=== PATIENT | male | born 1960 | race Caucasian/White ===

== ENCOUNTER → 2017-05-31 12:00 | Outpatient (CLI) | payer BC, SELFPAY ==
[2017-05-31 14:15] LABS: Hematocrit 41.4 % (40-54); Hemoglobin 14.4 g/dl (13.0-16.5); Mean Corp Hgb Conc 34.8 g/gl (32-36); Mean Corpuscular Hgb 29.9 pg (27.0-32.0); Mean Corpuscular Volume 85.9 fL (80-94); Mean Platelet Vol. 10.9 fl (6.2-12.0); Platelet Count 211 K/mm3 (150-450); Red Blood Count 4.82 M/mm3 (4.6-6.2)
[2017-05-31 14:19] LABS: Scan Indicated on CBC? Y/N NO
[2017-05-31 14:32] LABS: Microalbumin,Random Urine < 5.0 mg/L (NO RANGE EST.)
[2017-05-31 14:46] LABS: AST(SGOT) 37 U/L (15-37); Alanine Aminotransfer ALT/SGPT 57 U/L (16-61); Albumin, Serum 3.8 g/dL (3.2-5.0); Alkaline Phosphatase 72 U/L (45-117); Anion Gap 9 (5-15); BUN 12 mg/dL (7-18); BUN/Creat Ratio 15.6 RATIO (10-20); Calcium,Total 8.9 mg/dL (8.5-10.1); Chloride 106 mmol/L (98-107); Cholesterol 137 mg/dL (200); Creatinine, Serum 0.77 mg/dL (0.70-1.30); EST Glomerular Filtration Rate 110 mL/min (>60); Est Glom Filt Rate - Afr Amer 134 mL/min (>60); Globulin 3.7 g/dL (2.2-4.2); Glucose 142 mg/dL (74-106); High Density Lipoprotein 38 mg/dL; Potassium 4.1 mmol/L (3.5-5.1); Protein, Total 7.5 g/dL (6.4-8.2); Sodium Level 139 mmol/L (136-145); Thyroid Stim Hormone (TSH) 2.55 uIU/mL (0.358-3.74); Triglycerides 180 mg/dL; Very Low Density Lipoprotein 36 mg/dL (5-40)
== END ==
PROVIDERS: Family Provider Family Medicine; PCP Family Medicine; Visit Provider Family Medicine
DX: E11.9 Type 2 diabetes mellitus without complications (principal); K22.70 Barrett's esophagus without dysplasia
CPT/HCPCS: 36415; 80053; 80061; 82043; 82570; 84443; 85027

== ENCOUNTER 2017-07-28 19:16 | Emergency (ER) | payer BC, SELFPAY ==
[2017-07-28 19:16] VITALS: BP 128/77; PULSE 75; RESP 15; TEMP 37.1; BMI 35.9
--- NOTE | 2017-07-28 19:33 | ED.VISSUMM ---
- ER Visit Summary Date of Service: 07/28/17 Chief Complaint: Cough History of Present Illness: The patient is a 56 M with a history of diabetes, acid reflux, and allergic rhinitis. He ate some ice cream yesterday. Today he is having a lot of acid reflux. He says it irritates his throat and causes him to cough frequently. He also has seasonal allergies and reports postnasal drip. Denies shortness of breath or chest pain. Denies sputum. He is taking his diabetes medication and acid reflux medication. He is not taking anything currently for allergies. Physical Examination: Afebrile and vital signs unremarkable. Alert and oriented. Cranial nerves grossly intact. Posterior oral pharyngeal erythema. Good range of motion of his neck. No lymphadenopathy. Heart regular. Lungs clear. Skin appears normal. Test Results: None indicated Emergency Department Course and Treatment: Patient likely has acid reflux coupled with postnasal drip. There is no indication for imaging or other diagnostic testing. He will continue taking his home acid reflux medication. He was given a GI cocktail here. Will also start him on a nasal steroid. He was advised to follow-up with his doctor for recheck. Return for any new or worsening issues. Treatment Plan: As above Disposition: Discharged Impression: 1. Pharyngitis This note was generated with [employer] dictation software. It may contain incorrect words, spelling, and punctuation that were not noted in review of the chart prior to signing ED Disposition - Plan for ED Patient: Chief Complaint: Cough Referrals: Matt Salazar MD [Primary Care Provider] -
--- NOTE | 2017-07-28 19:35 | ED.DEP ---
ED Disposition - Plan for ED Patient: Chief Complaint: Cough Instructions: ED GERD, ED Allergy Seasonal Prescriptions: Fluticasone 0.05% [Flonase Nasal [place]] 2 spray NASAL DAILY #1 nasal.sry Referrals: Matt Salazar MD [Primary Care Provider] -
== END 2017-07-28 19:47 | disposition home or self-care (01) ==
LOC: ED 19:38
PROVIDERS: Emergency Provider Emergency Medicine; Family Provider Family Medicine; PCP Family Medicine
DX: J02.9 Acute pharyngitis, unspecified (principal); E11.9 Type 2 diabetes mellitus without complications; J30.9 Allergic rhinitis, unspecified; K21.9 Gastro-esophageal reflux disease without esophagitis; Z79.899 Other long term (current) drug therapy; Z87.891 Personal history of nicotine dependence
CPT/HCPCS: 99283

== ENCOUNTER 2017-08-18 20:25 | Emergency (ER) | payer BC, SELFPAY ==
[2017-08-18 20:25] VITALS: BP 149/73; PULSE 74; RESP 15; TEMP 37.5; BMI 34.9
--- NOTE | 2017-08-18 20:52 | ED.VISSUMM ---
- ER Visit Summary Date of Service: 08/18/17 Chief Complaint: Nausea History of Present Illness: The patient is a 56 M history of noncemented diabetes and reflux. States his primary care physician Dr. Matt Salazar recently put him on prednisone and doxycycline for a cough. Patient states that time he has whitish phlegm. Denies any shortness of breath. No hemoptysis. No chest pain. He believes that the doxycycline is making his reflux worse and make him nauseated. He denies any vomiting he denies any melena. He denies any fever. He is a non-smoker. Physical Examination: Very well-appearing middle-age male. Vital signs are stable and afebrile. He is in no distress. He does not look septic or toxic. H EENT exam unremarkable moist wheeze membranes. Posterior pharynx without erythema or exudate. TMs unremarkable small amount of wax in his left ear. Neck nontender no lymphadenopathy. Trachea midline. Lungs clear to auscultation bilaterally. No rales no rhonchi no wheezing. Equal symmetrical. No distress. Heart regular rate and rhythm no murmur rate about 70. Abdomen soft nontender. He is moving all 4 extremities. They are neurovascularly intact. Calves nontender without edema nor cords. Back exam nontender lungs clear from the posterior aspect. Neurologically is awake and alert. Test Results: None Emergency Department Course and Treatment: Clinically this is a viral syndrome. It has appears to doxycycline as aggravated his reflux. I think the patient can stop the antibiotic at this time. Clinically I do not feel he needs an x-ray. He is fine with the plan. He will use the prednisone as needed for wheezing currently he is not wheezing. Treatment Plan: Stop doxycycline. Treated as a viral syndrome. Disposition: Discharge Impression: Viral URI Acute on chronic reflux secondary to worsening symptoms secondary to doxycycline. This note was generated with [employer] dictation software. It may contain incorrect words, spelling, and punctuation that were not noted in review of the chart prior to signing ED Disposition - Plan for ED Patient: Chief Complaint: Nausea/Vomiting Referrals: Matt Salazar MD [Primary Care Provider] -
--- NOTE | 2017-08-18 20:55 | ED.DCSUM_ITS ---
- ER Visit Summary Date of Service: 08/18/17 Chief Complaint: Nausea History of Present Illness: The patient is a 56 M history of noncemented diabetes and reflux. States his primary care physician Dr. Matt Salazar recently put him on prednisone and doxycycline for a cough. Patient states that time he has whitish phlegm. Denies any shortness of breath. No hemoptysis. No chest pain. He believes that the doxycycline is making his reflux worse and make him nauseated. He denies any vomiting he denies any melena. He denies any fever. He is a non-smoker. Physical Examination: Very well-appearing middle-age male. Vital signs are stable and afebrile. He is in no distress. He does not look septic or toxic. H EENT exam unremarkable moist wheeze membranes. Posterior pharynx without erythema or exudate. TMs unremarkable small amount of wax in his left ear. Neck nontender no lymphadenopathy. Trachea midline. Lungs clear to auscultation bilaterally. No rales no rhonchi no wheezing. Equal symmetrical. No distress. Heart regular rate and rhythm no murmur rate about 70. Abdomen soft nontender. He is moving all 4 extremities. They are neurovascularly intact. Calves nontender without edema nor cords. Back exam nontender lungs clear from the posterior aspect. Neurologically is awake and alert. Test Results: None Emergency Department Course and Treatment: Clinically this is a viral syndrome. It has appears to doxycycline as aggravated his reflux. I think the patient can stop the antibiotic at this time. Clinically I do not feel he needs an x- ray. He is fine with the plan. He will use the prednisone as needed for wheezing currently he is not wheezing. Treatment Plan: Stop doxycycline. Treated as a viral syndrome. Disposition: Discharge Impression: Viral URI Acute on chronic reflux secondary to worsening symptoms secondary to doxycycline. This note was generated with [employer] dictation software. It may contain incorrect words, spelling, and punctuation that were not noted in review of the chart prior to signing ED Disposition - Plan for ED Patient: Chief Complaint: Nausea/Vomiting Referrals: Matt Salazar MD [Primary Care Provider] -
--- NOTE | 2017-08-18 20:55 | ED.DEP ---
ED Disposition - Plan for ED Patient: Disposition: Home or Assisted Living Chief Complaint: Nausea/Vomiting Instructions: ED Nausea Vomiting, ED URI Viral Referrals: Matt Salazar MD [Primary Care Provider] - As Needed Additional Instructions: Stop the antibiotic doxycycline. More than likely it is making her reflux worse and causing the nausea. This appears to be a viral respiratory infection you should not need antibiotic. Used prednisone only as needed if wheezing. Otherwise it may aggravate her reflux also. Call follow-up your doctor as needed.
[2017-08-18 21:03] VITALS: PULSE 77; O2SAT 95
== END 2017-08-18 21:04 | disposition home or self-care (01) ==
PROVIDERS: Emergency Provider Emergency Medicine; Family Provider Family Medicine; PCP Family Medicine
DX: J06.9 Acute upper respiratory infection, unspecified (principal); K21.9 Gastro-esophageal reflux disease without esophagitis; T36.4X5A Adverse effect of tetracyclines, initial encounter; Y92.9 Unspecified place or not applicable; E11.9 Type 2 diabetes mellitus without complications; R11.0 Nausea; Z79.84 Long term (current) use of oral hypoglycemic drugs; Z79.899 Other long term (current) drug therapy
CPT/HCPCS: 99282

== ENCOUNTER 2017-10-01 17:22 | Emergency (ER) | payer BC, SELFPAY ==
[2017-10-01 17:23] VITALS: BP 116/78; PULSE 79; RESP 16; TEMP 36.9; O2SAT 98; BMI 35.2
--- NOTE | 2017-10-01 19:16 | ED.DCSUM_ITS ---
- ER Visit Summary Date of Service: 10/01/17 Chief Complaint: Laceration History of Present Illness: The patient is a [address] Matt Salazar. He reports that he has a laceration to his right ring finger from a glass. He denies any pain. No paresthesias. No foreign body. His tetanus is up-to-date. Physical Examination: Vitals: Stable. Afebrile. General: Well-nourished and well-developed. Head: Normocephalic atraumatic. Neck: Supple, no lymphadenopathy. No JVD. Nontender. Cardiovascular: Regular rate and rhythm. No murmurs. Respiratory: No respiratory distress. Clear to auscultation bilaterally. Abdominal: Soft, nontender, nondistended, normal bowel sounds. No guarding, rebound, or peritoneal signs. Back: Nontender. Extremities: 0.5 cm laceration to the distal phalanx of his right ring finger. This is superficial and has no active bleeding.. Skin: Normal color, no rash. Neurologic: Alert and oriented ?3. Cranial nerves II through XII are intact. Normal strength and sensation. Psych: Normal affect. Emergency Department Course and Treatment: I discussed with the patient treatment options. He has decided to let this heal by secondary intention. I feel that is a reasonable course of action. Treatment Plan: Patient will be discharged instructions to follow-up Dr. Matt Salazar in 10-14 days if not improving. Disposition: To home in improved and stable condition. Impression: 1. Right fourth finger laceration, 0.5 cm, not repaired. This note was generated with [employer] dictation software. It may contain incorrect words, spelling, and punctuation that were not noted in review of the chart prior to signing ED Disposition - Plan for ED Patient: Disposition: Home or Assisted Living Chief Complaint: Laceration Instructions: ED Laceration Small Superf No Sutr Referrals: Matt Salazar MD [Primary Care Provider] - 10-14 Days if not better
[2017-10-01 19:31] VITALS: PULSE 72; RESP 22; O2SAT 97
--- NOTE | 2017-10-01 19:31 | ED.RN ---
THIS NURSE REVIEWED D/C INSTRUCTIONS WITH PT. PT VERBALIZED UNDERSTANDING OF INSTRUCTIONS. PT DENIES FURTHER NEEDS OR QUESTIONS AT THIS TIME. PT AMBULATES FROM ROOM ON OWN WITHOUT ASSISTANCE FROM STAFF
== END 2017-10-01 19:32 | disposition home or self-care (01) ==
PROVIDERS: Emergency Provider Emergency Medicine; Family Provider Family Medicine; PCP Family Medicine
DX: S61.214A Laceration without foreign body of right ring finger without damage to nail, initial encounter (principal); W25.XXXA Contact with sharp glass, initial encounter; Y93.9 Activity, unspecified; Y92.9 Unspecified place or not applicable; E11.9 Type 2 diabetes mellitus without complications; I10 Essential (primary) hypertension; E78.00 Pure hypercholesterolemia, unspecified; Z79.84 Long term (current) use of oral hypoglycemic drugs; Z79.899 Other long term (current) drug therapy
CPT/HCPCS: 99282

== ENCOUNTER → 2018-03-29 12:43 | Outpatient (CLI) | payer BC, SELFPAY ==
[2018-03-29 13:53] LABS: Absolute Lymphocyte Count 2.79 X10^3/ul (0.83-4.51); Absolute Neutrophil Count 4.3 X10^3/uL (2.0-7.7); Basophil# 0.03 X10^3/uL; Basophil% 0.4 % (0-1); Eosinophil# 0.24 X10^3/uL; Eosinophils% 3.1 % (0-5); Hematocrit 44.8 % (40-54); Hemoglobin 15.4 g/dl (13.0-16.5); Lymphocyte # 2.79 X10^3/ul (4.0); Lymphocyte % 35.6 % (19-41); Mean Corp Hgb Conc 34.4 g/gl (32-36); Mean Corpuscular Hgb 30.2 pg (27.0-32.0); Mean Corpuscular Volume 87.8 fL (80-94); Mean Platelet Vol. 11.1 fl (6.2-12.0); Monocyte# 0.49 X10^3/uL; Monocyte% 6.3 % (0-10); Neutrophil # 4.26 X10^3/uL (2.7-7.7); Neutrophil % 54.2 % (47-70); Platelet Count 192 K/mm3 (150-450); RBC Distribution Width CV 13.1 % (11.6-14.6); RBC Distribution Width SD 41.9 fl (35.1-43.9); White Blood Count 7.8 K/mm3 (4.4-11.0)
[2018-03-29 13:54] LABS: POSITIVE COUNT NO; POSITIVE DIFFERENTIAL NO; POSITIVE MORPHOLOGY NO
[2018-03-29 14:11] LABS: Hemoglobin A1c 7.1 % (4.2-6.3)
[2018-03-29 14:15] LABS: Microalbumin,Random Urine 5.4 mg/L (NO RANGE EST.); Microalbumin:Creatinine Ratio 6.1 mg/g CRE (<30 mg/g CRE)
[2018-03-29 14:25] LABS: ALB/GLOB Ratio 0.9 RATIO (0.9-2.4); AST(SGOT) 29 U/L (15-37); Alanine Aminotransfer ALT/SGPT 49 U/L (16-61); Albumin, Serum 3.9 g/dL (3.2-5.0); Alkaline Phosphatase 64 U/L (45-117); Anion Gap 8 (5-15); BUN 14 mg/dL (7-18); BUN/Creat Ratio 19.3 RATIO (10-20); Chloride 104 mmol/L (98-107); Cholesterol 149 mg/dL (200); Creatinine, Serum 0.73 mg/dL (0.70-1.30); EST Glomerular Filtration Rate 118 mL/min (>60); Est Glom Filt Rate - Afr Amer 142 mL/min (>60); Globulin 4.3 g/dL (2.2-4.2); Glucose 137 mg/dL (74-106); High Density Lipoprotein 37 mg/dL; Potassium 4.2 mmol/L (3.5-5.1); Protein, Total 8.2 g/dL (6.4-8.2); Sodium Level 136 mmol/L (136-145); Thyroid Stim Hormone (TSH) 3.17 uIU/mL (0.358-3.74); Triglycerides 233 mg/dL; Very Low Density Lipoprotein 47 mg/dL (5-40)
== END ==
PROVIDERS: Family Provider Family Medicine; PCP Family Medicine; Referring Provider Family Medicine; Visit Provider Family Medicine
DX: E11.9 Type 2 diabetes mellitus without complications (principal); K22.70 Barrett's esophagus without dysplasia
CPT/HCPCS: 36415; 80053; 80061; 82043; 82570; 83036; 84443; 85025

== ENCOUNTER → 2018-04-29 14:45 | Outpatient (CLI) | payer BC, SELFPAY ==
--- NOTE | 2018-04-29 | IMM_PTH ---
PATIENT: TIA GRIFFIN LOC: [facility] U#:[id number] AGE/SX: 64/M ROOM: RE04/29/[address]: Dr. Isauro Harrington MD : 1960 BED: DIS: SPEC #: [id number] RECD: 05/01/18 13:59 STATUS: MARCI REKera #: [id number] BALJEET: 04/29/18 00:[address]: Isauro Harrington DEPT: IMMUNOHISTOCHEMISTRY RECD BY: Erna Nieves ENTERED: 05/01/18 14:00 SP TYPE: IMMUNO OTHR DR: Dr. Matt Salazar MD Tissues: A - Esophageal mucous membrane Procedures: P53 (initial) PHYSICIAN & INSTITUTION [place] [id number] SPECIMEN INFORMATION: Tissue Source: A - Esophageal biopsy Clinical Info: GERD, Adorno's esophagus Specimen Number: [id number] CPT code: 40738 METHODOLOGY: Deparaffinized sections of prefer/formalin-fixed tissue or PAP/DQ stained slides are incubated with monoclonal/polyclonal antibodies/oligonucleotide probes. Localization is made via biotin free immunoperoxidase method. Appropriate controls are performed and reacted as expected. Results on target cell population are indicated in the following table: RESULTS: ANTIBODY / CLONE RESULT Block A P53 (DO-7) negative These tests were developed and their performance characteristics determined by [facility]. They may not have been cleared or approved by the U.S. Food and Drug Administration. The FDA has determined that such clearance or approval is not necessary. INTERPRETATION: A. Esophageal biopsy: No evidence of dysplasia. AM:katelyn 05/02/18
--- NOTE | 2018-04-29 11:00 | EGD_PTH ---
PATIENT: TIA GRIFFIN LOC: [facility] U#:[id number] AGE/SX: 64/M ROOM: RE04/29/[address]: Dr. Isauro Harrington MD : 1960 BED: DIS: SPEC #: [id number] RECD: 04/29/18 14:39 STATUS: MARCI LAURA #: [id number] BALJEET: 04/29/18 11:[address]: Isauro Harrington DEPT: SURGICAL PATHOLOGY RECD BY: Contreras Riggs ENTERED: 04/30/18 11:14 SP TYPE: EGD BIOPSY VICTOR MANUEL DR: Dr. Matt Salazar MD Tissues: A - Esophageal mucous membrane B - Esophagus, NOS Procedures: Special Stain Group II Surgery Specimen Level IV Alcian Blue/PAS (control) HEADER OPERATION: EGD with biopsies PRE-OP DIAGNOSIS: GERD/Adorno's esophagus TISSUE SUBMITTED: A. Esophageal biopsies/Adorno's mucosa, rule out dysplasia, B. Proximal esophagus, rule out EE MICROSCOPIC DIAGNOSIS A. Esophagus, biopsy: Intestinal metaplasia with no evidence of dysplasia. Mild chronic inflammation. See comment. B. Proximal esophagus, biopsy: Gastroesophageal junctional mucosa with chronic inflammation. No evidence of Adorno's specialized epithelium. See comment. AM:katelyn 05/01/18 COMMENT A. Alcian blue/PAS stain with matched control supports the above diagnosis. Immunohistochemistry ([id number]) supports the above diagnosis. Squamous mucosa is not represented in the biopsy. Clinical correlation is suggested. B. Alcian blue/PAS stain with matched control supports the above diagnosis. MICROSCOPIC DESCRIPTION Slides are reviewed. GROSS DESCRIPTION A - Received in fixative is one container labeled with the patient's name and designated esophageal biopsy. The specimen consists of multiple irregular fragments of light jacinto soft tissue that in aggregate measure 0.8 x 0.3 x 0.1 cm. The specimen is totally submitted in one cassette. B - Received in fixative is one container labeled with the patient's name and designated proximal esophagus. The specimen consists of multiple irregular fragments of light jacinto soft tissue that in aggregate measure 1 x 0.3 x 0.1 cm. The specimen is totally submitted in one cassette. / TUCKER:katelyn 04/30/18 TC:5 CPT: 89910 x2, 29827 x2
== END ==
PROVIDERS: Family Provider Family Medicine; PCP Family Medicine; Referring Provider Internal Medicine Gastroenterology; Visit Provider Internal Medicine Gastroenterology
DX: K22.70 Barrett's esophagus without dysplasia (principal); K21.9 Gastro-esophageal reflux disease without esophagitis
CPT/HCPCS: 88305; 88313; 88342

== ENCOUNTER → 2018-05-03 15:10 | Outpatient (CLI) | payer BC, SELFPAY ==
[2018-05-13 05:06] LABS: Almond <0.10 kU/L (Class 0); Barley, Whole Grain <0.10 kU/L (Class 0); Beef <0.10 kU/L (Class 0); Carrot <0.10 kU/L (Class 0); Casein <0.10 kU/L (Class 0); Cashew <0.10 kU/L (Class 0); Chicken <0.10 kU/L (Class 0); Chocolate <0.10 kU/L (Class 0); Clam <0.10 kU/L (Class 0); Codfish <0.10 kU/L (Class 0); Corn <0.10 kU/L (Class 0); Crab <0.10 kU/L (Class 0); Egg, White <0.10 kU/L (Class 0); Egg, Whole <0.10 kU/L (Class 0); Egg, Yolk <0.10 kU/L (Class 0); Garlic <0.10 kU/L (Class 0); Gluten <0.10 kU/L (Class 0); Hazelnut/Filbert <0.10 kU/L (Class 0); Lobster <0.10 kU/L (Class 0); Milk (Cow) <0.10 kU/L (Class 0); Oat <0.10 kU/L (Class 0); Onion <0.10 kU/L (Class 0); Orange <0.10 kU/L (Class 0); Pea <0.10 kU/L (Class 0); Pecan <0.10 kU/L (Class 0); Pork <0.10 kU/L (Class 0); Potato, White <0.10 kU/L (Class 0); Rice <0.10 kU/L (Class 0); Rye <0.10 kU/L (Class 0); Salmon <0.10 kU/L (Class 0); Shrimp <0.10 kU/L (Class 0); Soybean <0.10 kU/L (Class 0); Strawberry <0.10 kU/L (Class 0); Tomato <0.10 kU/L (Class 0); Tuna <0.10 kU/L (Class 0); Walnut, (Food) <0.10 kU/L (Class 0); Wheat <0.10 kU/L (Class 0); Yeast <0.10 kU/L (Class 0)
[2018-05-13 11:48] LABS: Apple <0.10 kU/L (Class 0); Peanut <0.10 kU/L (Class 0)
[2018-05-16 11:08] LABS: Alternaria tenuis <0.10 kU/L (Class 0); Ash, White <0.10 kU/L (Class 0); Aspergillus fumigatus <0.10 kU/L (Class 0); Bermuda Grass <0.10 kU/L (Class 0); Birch <0.10 kU/L (Class 0); Black Walnut <0.10 kU/L (Class 0); Cat Hair / Dander,Stand <0.10 kU/L (Class 0); Cedar, Mountain <0.10 kU/L (Class 0); Cladosporium herbarum <0.10 kU/L (Class 0); Cockroach, American <0.10 kU/L (Class 0); Cottonwood <0.10 kU/L (Class 0); D farinae Mite <0.10 kU/L (Class 0); D pteronyssinus <0.10 kU/L (Class 0); Dog Epithelia <0.10 kU/L (Class 0); Elm, American White <0.10 kU/L (Class 0); Maple/Box Elder <0.10 kU/L (Class 0); Mulberry, White <0.10 kU/L (Class 0); Oak, White <0.10 kU/L (Class 0); Pecan <0.10 kU/L (Class 0); Penicillium Notatum <0.10 kU/L (Class 0); Pigweed, Rough <0.10 kU/L (Class 0); Ragweed, Short/Common <0.10 kU/L (Class 0); Russian Thistle <0.10 kU/L (Class 0); Sheep Sorrel <0.10 kU/L (Class 0); Sycamore, American <0.10 kU/L (Class 0); Timothy Grass <0.10 kU/L (Class 0)
[2018-05-16 16:01] LABS: Immunoglobulin E 31 IU/mL (6-495); Mouse Urine <0.10 kU/L (Class 0)
[2018-05-18 03:06] LABS: Banana <0.10 kU/L (Class 0); Celery <0.10 kU/L (Class 0); Cheddar Cheese <0.10 kU/L (Class 0); Lettuce <0.10 kU/L (Class 0); Peach <0.10 kU/L (Class 0); Turkey <0.10 kU/L (Class 0)
[2018-05-18 15:23] LABS: Lactalbumin, Alpha <0.10 kU/L (Class 0)
== END ==
PROVIDERS: Family Provider Family Medicine; PCP Family Medicine; Visit Provider Family Medicine
DX: K20.0 Eosinophilic esophagitis (principal)
CPT/HCPCS: 36415; 82785; 86003

== ENCOUNTER → 2019-02-03 14:38 | Outpatient (CLI) | payer BC, SELFPAY ==
[2019-02-03 18:01] LABS: Uric Acid 6.1 mg/dL (3.5-7.2)
== END ==
PROVIDERS: Family Medicine; Family Provider Family Medicine; PCP Family Medicine; Visit Provider Family Medicine
DX: M10.9 Gout, unspecified (principal)
CPT/HCPCS: 36415; 84550

== ENCOUNTER → 2019-04-08 12:32 | Outpatient (CLI) | payer BC, SELFPAY ==
[2019-04-08 15:25] LABS: ALB/GLOB Ratio 0.8 RATIO (0.9-2.4); AST(SGOT) 27 U/L (15-37); Alanine Aminotransfer ALT/SGPT 52 U/L (16-61); Albumin, Serum 3.4 g/dL (3.2-5.0); Alkaline Phosphatase 75 U/L (45-117); Anion Gap 5 (5-15); BUN 17 mg/dL (7-18); BUN/Creat Ratio 16.3 RATIO (10-20); Chloride 108 mmol/L (98-107); Cholesterol 128 mg/dL (200); Creatinine, Serum 1.04 mg/dL (0.70-1.30); EST Glomerular Filtration Rate 78 mL/min (>60); Est Glom Filt Rate - Afr Amer 94 mL/min (>60); Globulin 4.5 g/dL (2.2-4.2); Glucose 156 mg/dL (74-106); High Density Lipoprotein 35 mg/dL; Potassium 4.2 mmol/L (3.5-5.1); Protein, Total 7.9 g/dL (6.4-8.2); Sodium Level 138 mmol/L (136-145); Triglycerides 230 mg/dL; Uric Acid 7.4 mg/dL (3.5-7.2); Very Low Density Lipoprotein 46 mg/dL (5-40)
[2019-04-08 15:28] LABS: Hemoglobin A1c 7.5 % (4.2-6.3)
[2019-04-08 15:43] LABS: Microalbumin,Random Urine < 5.0 mg/L (NO RANGE EST.)
== END ==
PROVIDERS: PCP Family Medicine; Referring Provider Family Medicine; Visit Provider Family Medicine
DX: E11.9 Type 2 diabetes mellitus without complications (principal); E79.0 Hyperuricemia without signs of inflammatory arthritis and tophaceous disease
CPT/HCPCS: 36415; 80053; 80061; 82043; 82570; 83036; 84550

== ENCOUNTER → 2019-07-21 14:56 | Outpatient (CLI) | payer BC, SELFPAY ==
[2019-07-21 18:29] LABS: ALB/GLOB Ratio 0.9 RATIO (0.9-2.4); AST(SGOT) 47 U/L (15-37); Alanine Aminotransfer ALT/SGPT 68 U/L (16-61); Albumin, Serum 3.6 g/dL (3.2-5.0); Alkaline Phosphatase 78 U/L (45-117); Anion Gap 9 (5-15); BUN 15 mg/dL (7-18); BUN/Creat Ratio 18.8 RATIO (10-20); Calcium,Total 9.6 mg/dL (8.5-10.1); Chloride 103 mmol/L (98-107); EST Glomerular Filtration Rate 106 mL/min (>60); Est Glom Filt Rate - Afr Amer 128 mL/min (>60); Globulin 4.2 g/dL (2.2-4.2); Glucose 140 mg/dL (74-106); Potassium 4.4 mmol/L (3.5-5.1); Protein, Total 7.8 g/dL (6.4-8.2); Sodium Level 137 mmol/L (136-145)
[2019-07-21 18:42] LABS: Hemoglobin A1c 6.5 % (3.8-5.6)
[2019-07-21 19:00] LABS: Microalbumin,Random Urine 5.7 mg/L (NO RANGE EST.); Microalbumin:Creatinine Ratio 6.3 mg/g CRE (<30 mg/g CRE)
== END ==
PROVIDERS: PCP Family Medicine; Visit Provider Family Medicine
DX: E11.9 Type 2 diabetes mellitus without complications (principal)
CPT/HCPCS: 36415; 80053; 82043; 82570; 83036

== ENCOUNTER → 2019-12-22 16:45 | Outpatient (CLI) | payer BC, SELFPAY ==
[2019-12-22 18:36] LABS: Absolute Lymphocyte Count 2.28 X10^3/uL (0.83-4.51); Basophil# 0.05 X10^3/uL; Basophil% 0.7 % (0-1); Eosinophils% 2.8 % (0-5); Hemoglobin 14.3 g/dL (13.0-16.5); Lymphocyte # 2.28 X10^3/ul (4.0); Lymphocyte % 32.1 % (19-41); Mean Corpuscular Hgb 29.9 pg (27.0-32.0); Mean Corpuscular Volume 87.9 fL (80-94); Monocyte# 0.53 X10^3/uL; Monocyte% 7.5 % (0-10); NRBC Flagged by Analyzer 0 % (0-5); Neutrophil # 4.03 X10^3/uL (2.7-7.7); Neutrophil % 56.8 % (47-70); Platelet Count 218 K/mm3 (150-450); RBC Distribution Width CV 12.4 % (11.6-14.6); RBC Distribution Width SD 39.4 fl (35.1-43.9); Red Blood Count 4.78 M/mm3 (4.6-6.2); White Blood Count 7.1 K/mm3 (4.4-11.0)
[2019-12-22 18:56] LABS: ALB/GLOB Ratio 0.9 RATIO (0.9-2.4); AST(SGOT) 45 U/L (15-37); Alanine Aminotransfer ALT/SGPT 73 U/L (16-61); Albumin, Serum 3.7 g/dL (3.2-5.0); Alkaline Phosphatase 84 U/L (45-117); Anion Gap 8 (5-15); BUN 12 mg/dL (7-18); BUN/Creat Ratio 15.9 RATIO (10-20); Calcium,Total 8.7 mg/dL (8.5-10.1); Chloride 106 mmol/L (98-107); Creatinine, Serum 0.76 mg/dL (0.70-1.30); EST Glomerular Filtration Rate 112 mL/min (>60); Est Glom Filt Rate - Afr Amer 135 mL/min (>60); Globulin 3.9 g/dL (2.2-4.2); Glucose 109 mg/dL (74-106); Potassium 3.9 mmol/L (3.5-5.1); Protein, Total 7.6 g/dL (6.4-8.2); Sodium Level 139 mmol/L (136-145)
== END ==
PROVIDERS: PCP Family Medicine; Visit Provider Family Medicine
DX: T14.8XXA Other injury of unspecified body region, initial encounter (principal); X58.XXXA Exposure to other specified factors, initial encounter; Y93.9 Activity, unspecified; Y92.9 Unspecified place or not applicable; Y99.9 Unspecified external cause status
CPT/HCPCS: 36415; 80053; 85025

== ENCOUNTER → 2020-03-16 16:17 | Outpatient (CLI) | payer BC, SELFPAY ==
[2020-03-16 18:12] LABS: Absolute Lymphocyte Count 1.95 X10^3/uL (0.83-4.51); Absolute Neutrophil Count 4.2 X10^3/uL (2.0-7.7); Basophil# 0.05 X10^3/uL; Basophil% 0.7 % (0-1); Eosinophil# 0.22 X10^3/uL; Eosinophils% 3.2 % (0-5); Hematocrit 43.9 % (40-54); Hemoglobin 14.8 g/dL (13.0-16.5); Lymphocyte # 1.95 X10^3/ul (4.0); Mean Corp Hgb Conc 33.7 g/dL (32-36); Mean Corpuscular Volume 86.1 fL (80-94); Mean Platelet Vol. 10.8 fl (6.2-12.0); Monocyte# 0.55 X10^3/uL; Monocyte% 7.9 % (0-10); NRBC Flagged by Analyzer 0.3 % (0-5); Neutrophil # 4.17 X10^3/uL (2.7-7.7); Neutrophil % 59.9 % (47-70); Platelet Count 185 K/mm3 (150-450); RBC Distribution Width CV 12.1 % (11.6-14.6); RBC Distribution Width SD 38.2 fl (35.1-43.9)
[2020-03-16 18:29] LABS: Hemoglobin A1c 6.8 % (3.8-5.6)
[2020-03-16 18:34] LABS: ALB/GLOB Ratio 1.1 RATIO (0.9-2.4); AST(SGOT) 27 U/L (15-37); Alanine Aminotransfer ALT/SGPT 62 U/L (16-61); Albumin, Serum 3.8 g/dL (3.2-5.0); Alkaline Phosphatase 82 U/L (45-117); Anion Gap 7 (5-15); BUN 16 mg/dL (7-18); BUN/Creat Ratio 21.8 RATIO (10-20); Calcium,Total 9.1 mg/dL (8.5-10.1); Chloride 104 mmol/L (98-107); Creatinine, Serum 0.73 mg/dL (0.70-1.30); EST Glomerular Filtration Rate 116 mL/min (>60); Est Glom Filt Rate - Afr Amer 140 mL/min (>60); Globulin 3.5 g/dL (2.2-4.2); Glucose 141 mg/dL (74-106); Potassium 4.1 mmol/L (3.5-5.1); Protein, Total 7.3 g/dL (6.4-8.2); Sodium Level 138 mmol/L (136-145)
== END ==
PROVIDERS: PCP Family Medicine; Referring Provider Family Medicine; Visit Provider Family Medicine
DX: E11.9 Type 2 diabetes mellitus without complications (principal)
CPT/HCPCS: 36415; 80053; 83036; 85025

== ENCOUNTER → 2020-07-20 16:17 | Outpatient (CLI) | payer BC, SELFPAY ==
[2020-07-20 17:52] LABS: Absolute Lymphocyte Count 2.01 X10^3/uL (0.83-4.51); Absolute Neutrophil Count 3.5 X10^3/uL (2.0-7.7); Basophil# 0.06 X10^3/uL; Basophil% 0.9 % (0-1); Eosinophil# 0.21 X10^3/uL; Eosinophils% 3.3 % (0-5); Hematocrit 42.2 % (40-54); Hemoglobin 14.3 g/dL (13.0-16.5); Lymphocyte # 2.01 X10^3/ul (0.83-4.51); Lymphocyte % 31.4 % (19-41); Mean Corp Hgb Conc 33.9 g/dL (32-36); Mean Corpuscular Hgb 29.9 pg (27.0-32.0); Mean Corpuscular Volume 88.3 fL (80-94); Mean Platelet Vol. 10.9 fl (6.2-12.0); Monocyte# 0.55 X10^3/uL; Monocyte% 8.6 % (0-10); NRBC Flagged by Analyzer 0 % (0-5); Neutrophil # 3.54 X10^3/uL (2.7-7.7); Neutrophil % 55.3 % (47-70); Platelet Count 209 K/mm3 (150-450); RBC Distribution Width CV 12.1 % (11.6-14.6); RBC Distribution Width SD 38.9 fl (35.1-43.9); Red Blood Count 4.78 M/mm3 (4.6-6.2); White Blood Count 6.4 K/mm3 (4.4-11.0)
[2020-07-20 18:24] LABS: ALB/GLOB Ratio 0.9 RATIO (0.9-2.4); AST(SGOT) 56 U/L (15-37); Alanine Aminotransfer ALT/SGPT 90 U/L (16-61); Albumin, Serum 3.5 g/dL (3.2-5.0); Alkaline Phosphatase 80 U/L (45-117); Anion Gap 8 (5-15); BUN 14 mg/dL (7-18); BUN/Creat Ratio 17.6 RATIO (10-20); CRP 3.26 mg/L (0.0-3.0); Chloride 104 mmol/L (98-107); Creatinine, Serum 0.79 mg/dL (0.70-1.30); EST Glomerular Filtration Rate 106 mL/min (>60); Est Glom Filt Rate - Afr Amer 128 mL/min (>60); Globulin 3.9 g/dL (2.2-4.2); Glucose 155 mg/dL (74-106); Potassium 4.2 mmol/L (3.5-5.1); Protein, Total 7.4 g/dL (6.4-8.2); Sodium Level 138 mmol/L (136-145)
== END ==
PROVIDERS: PCP Family Medicine; Referring Provider Family Medicine; Visit Provider Family Medicine
DX: A09 Infectious gastroenteritis and colitis, unspecified (principal)
CPT/HCPCS: 36415; 80053; 85025; 86140

== ENCOUNTER → 2020-07-21 | Outpatient (CLI) | payer BC, SELFPAY | END | disposition home or self-care (01) | LOC: LABSPEC 13:45 | PROVIDERS: PCP Family Medicine; Referring Provider Family Medicine; Visit Provider Family Medicine | DX: A09 Infectious gastroenteritis and colitis, unspecified (principal) | CPT/HCPCS: 87493; 87506 ==

== ENCOUNTER → 2020-12-13 | Outpatient (CLI) | payer BC, SELFPAY | END | disposition home or self-care (01) | LOC: LABSPEC 12-14 13:18 | PROVIDERS: PCP Family Medicine; Visit Provider Registered Nurse | DX: J06.9 Acute upper respiratory infection, unspecified (principal) | CPT/HCPCS: 87633; 87635; U0005; U0003 ==

== ENCOUNTER 2021-03-07 | Emergency (ER) | payer BC, SELFPAY ==
[2021-03-07 00:01] VITALS: BP 155/84; PULSE 73; RESP 16; TEMP 36.4; O2SAT 98; BMI 36.5
--- NOTE | 2021-03-07 00:41 | EX.ED.DYSGE1 ---
HPI History of Present Illness Chief Complaint: Flank Pain Informant: patient Onset/Context/Timing Onset: Weeks (1) Context: Gradual Onset Timing: Continuous Quality: Sharp Location: Low back Worsened by: Nothing Relieved by: Nothing Narrative Narrative: Patient admits to pain in his low back that has been constant for the past week. Patient states the pain is sharp. Patient states nothing makes it worse and nothing makes it better. Patient states pain does radiate around into his lower abdomen. Patient admits to some nausea but denies any vomiting. Patient denies any radiation of the pain to his lower extremities. Patient states that his doctor told him it was likely from gout and told him to take his gout medications. Patient states that his doctor also ordered a urinalysis but he was unable to come in that day to provide a urine specimen. Patient denies any dysuria or hematuria. Patient admits to subjective fevers. [facility] Medical History Diabetes GERD (gastroesophageal reflux disease) Gout Hypertension Inguinal hernia Home Medications atorvastatin 20 mg PO DAILY 03/07/21 [History Last Taken Unknown] colchicine 0.6 mg PO Q6H PRN PRN 03/07/21 [History Last Taken Unknown] metformin 500 mg PO BID 03/07/21 [History Last Taken Unknown] omeprazole 20 mg PO DAILY #30 capsule 03/07/21 [Rx Last Taken Unknown] sucralfate 03/07/21 [History Last Taken Unknown] Allergy/AdvReac Type Severity Reaction Status Date / Time doxycycline AdvReac Nausea Verified 10/01/17 17:24 Social History Smoking Status: Never smoker ROS ROS ED Constitutional Constitutional ED: Reports fever(s) and subjective; Denies chills Eyes Eyes: Denies blurry vision or change in vision ENT ENT ED: Reports rhinorrhea; Denies sore throat Cardiovascular Cardiovascular: Reports chest pain; Denies palpitations Respiratory/Chest Respiratory/Chest: Denies cough or dyspnea Gastrointestinal Gastrointestinal: Reports nausea; Denies vomiting Genitourinary Genitourinary ED: Denies dysuria or hematuria Musculoskeletal Musculoskeletal: Reports back pain; Denies neck pain Integumentary Denies abscess or rash Neurologic Neurologic: Denies headache(s) or weakness Allergic/Immunologic Allergic/Immunologic ED: Denies mouth swelling or urticaria EXAM Physical Exam Const Vital Signs: 03/07/21 00:01 03/07/21 00:09 Temperature 97.6 F L Temperature Source Temporal Pulse Rate 73 Respiratory Rate 16 Respiratory Effort Normal Blood Pressure 155/84 H Blood Pressure Mean 107 Pulse Ox 98 Oxygen Delivery Method Room Air Positive well nourished, well developed and obese General Appearance ED: well developed Nutritional Appearance: obese HEENT Reports moist mucous membranes Neck supple and no JVD Resp normal respiratory effort and clear to auscultation bilaterally Cardio regular rate, regular rhythm and no murmurs GI normal to inspection, nondistended, normoactive bowel sounds and non-tender Palpation: soft Extremity normal to inspection General Extremety ED: Negative for edema or tenderness General Extremity: Negative for edema Neuro oriented x3, CN's II-XII intact bilaterally and no sensory deficits noted Sensorium / Orientation: alert Motor Exam: strength 5/5 throughout Psych mental status grossly normal Skin no rashes or lesions noted MDM MDM MDM Narrative Medical decision making narrative: CBC was within normal limits. Comprehensive metabolic profile was essentially within normal limits. PT was INR and PTT were normal. Urinalysis does not show any evidence of urinary tract infection or hematuria. Patient was advised of his findings. Since his hemoglobin and hematocrit are stable and unchanged from previous results, I do not feel patient requires admission for further work-up of his black stools. Patient will be started on omeprazole. Patient can follow-up as an outpatient for his black stools. Patient was instructed to return if any hematemesis or maroon or bright red bleeding from his rectum. Patient was instructed to follow-up with his primary care physician in 5 to 7 days. Patient understood and was agreeable with the plan. All questions were answered. Lab Data Labs: Laboratory Results - last 24 hr 03/07/21 03/07/21 03/07/21 00:25 00:25 00:25 WBC 7.7 RBC 4.89 Hgb 14.3 Hct 41.3 MCV 84.5 MCH 29.2 MCHC 34.6 RDW Std Deviation 37.7 RDW Coeff of Damian 12.5 Plt Count 222 MPV 10.7 Immature Gran % (Auto) 0.300 Neut % (Auto) 51.0 Lymph % (Auto) 36.4 [place] % (Auto) 7.8 Eos % (Auto) 3.7 Baso % (Auto) 0.8 Absolute Neuts (auto) 3.9 Absolute Lymphs (auto) 2.79 Nucleated RBC % 0 PT 13.2 INR 1.1 APTT 34.1 Sodium 137 Potassium 3.9 Chloride 104 Carbon Dioxide 25.0 Anion Gap 8 BUN 20 H Creatinine 0.85 Estim Creat Clear Calc 67.51 Est GFR (MDRD) Af Amer 118 Est GFR (MDRD) Non-Af 98 BUN/Creatinine Ratio 23.6 H Glucose 118 H Calcium 8.8 Total Bilirubin 0.50 AST 31 ALT 61 Alkaline Phosphatase 76 Total Protein 7.5 Albumin 3.8 Globulin 3.7 Albumin/Globulin Ratio 1.0 Urine Color Urine Clarity Urine pH Ur Specific [place] Urine Protein Urine Glucose (UA) Urine Ketones Urine Occult Blood Urine Nitrite Urine Bilirubin Urine Urobilinogen Ur Leukocyte Esterase Urine RBC Urine WBC Ur Squamous Epith Cells Urine Bacteria Urine Mucus 03/07/21 00:35 WBC RBC Hgb Hct MCV MCH MCHC RDW Std Deviation RDW Coeff of Damian Plt Count MPV Immature Gran % (Auto) Neut % (Auto) Lymph % (Auto) [place] % (Auto) Eos % (Auto) Baso % (Auto) Absolute Neuts (auto) Absolute Lymphs (auto) Nucleated RBC % PT INR APTT Sodium Potassium Chloride Carbon Dioxide Anion Gap BUN Creatinine Estim Creat Clear Calc Est GFR (MDRD) Af Amer Est GFR (MDRD) Non-Af BUN/Creatinine Ratio Glucose Calcium Total Bilirubin AST ALT Alkaline Phosphatase Total Protein Albumin Globulin Albumin/Globulin Ratio Urine Color Yellow Urine Clarity Clear Urine pH 5.0 Ur Specific [place] 1.010 Urine Protein Negative Urine Glucose (UA) Normal Urine Ketones Negative Urine Occult Blood Negative Urine Nitrite Negative Urine Bilirubin Negative Urine Urobilinogen Normal Ur Leukocyte Esterase Negative Urine RBC 0 SEEN Urine WBC 0 SEEN Ur Squamous Epith Cells 0 SEEN Urine Bacteria 0 SEEN Urine Mucus 0 SEEN Discharge Plan Triage Chief Complaint: Flank Pain ED Provider: Matt Dc Dx/Rx/DC Orders Clinical Impression: Low back pain, Black stools Instructions: ED Back Pain (Acute or Chronic) Prescriptions: New omeprazole [omeprazole] 20 MG capsule 20 mg PO DAILY Qty: 30 RF: 0 No Action metformin 500 mg tablet 500 mg PO BID RF: 0 atorvastatin 20 mg tablet 20 mg PO DAILY RF: 0 sucralfate 1 gram tablet RF: 0 colchicine 0.6 mg tablet 0.6 mg PO Q6H PRN PRN (Reason: Pain) RF: 0 Primary Care Provider: Matt Salazar Referrals: Matt Salazar MD [Primary Care Provider] - 5-7 Days Disposition Disposition: Home, Self Care
[2021-03-07 00:49] LABS: Bacteria 0 SEEN /hpf (None Seen); Mucous, Urine 0 SEEN /hpf (<or=2+); Red Blood Cells-Urine 0 SEEN /hpf (0-5); Squamous Epithelial Cells - UA 0 SEEN /hpf (0-5); White Blood Cells 0 SEEN /hpf (0-5)
[2021-03-07 00:49] LABS: Absolute Lymphocyte Count 2.79 X10^3/uL (0.83-4.51); Absolute Neutrophil Count 3.9 X10^3/uL (2.0-7.7); Basophil# 0.06 X10^3/uL; Basophil% 0.8 % (0-1); Eosinophil# 0.28 X10^3/uL; Eosinophils% 3.7 % (0-5); Hematocrit 41.3 % (40-54); Hemoglobin 14.3 g/dL (13.0-16.5); Lymphocyte # 2.79 X10^3/ul (0.83-4.51); Lymphocyte % 36.4 % (19-41); Mean Corp Hgb Conc 34.6 g/dL (32-36); Mean Corpuscular Hgb 29.2 pg (27.0-32.0); Mean Corpuscular Volume 84.5 fL (80-94); Mean Platelet Vol. 10.7 fl (6.2-12.0); Monocyte% 7.8 % (0-10); NRBC Flagged by Analyzer 0 % (0-5); Neutrophil # 3.92 X10^3/uL (2.7-7.7); Platelet Count 222 K/mm3 (150-450); RBC Distribution Width CV 12.5 % (11.6-14.6); RBC Distribution Width SD 37.7 fl (35.1-43.9); Red Blood Count 4.89 M/mm3 (4.6-6.2); White Blood Count 7.7 K/mm3 (4.4-11.0)
[2021-03-07 00:51] LABS: Color, Urine Yellow (Yellow); Glucose, Dipstick Normal (Normal); Ketone-Dipstick Negative (Negative); Leukocyte Esterase-Dipstick Negative /ul (Negative); Nitrite-Dipstick Negative (Negative); Occult Blood-Urine Negative /ul (Negative); Protein-Dipstick Negative (Negative); Urine Bilirubin Dipstick Negative (Negative); Urine Clarity Clear (Clear); Urine Urobilinogen Normal (Normal)
[2021-03-07 01:02] LABS: AST(SGOT) 31 U/L (15-37); Alanine Aminotransfer ALT/SGPT 61 U/L (16-61); Albumin, Serum 3.8 g/dL (3.2-5.0); Alkaline Phosphatase 76 U/L (45-117); Anion Gap 8 (5-15); BUN 20 mg/dL (7-18); BUN/Creat Ratio 23.6 RATIO (10-20); Calcium,Total 8.8 mg/dL (8.5-10.1); Chloride 104 mmol/L (98-107); Creatinine, Serum 0.85 mg/dL (0.70-1.30); EST Glomerular Filtration Rate 98 mL/min (>60); Est Glom Filt Rate - Afr Amer 118 mL/min (>60); Estimated Creatinine Clearance 67.51 ml/min; Globulin 3.7 g/dL (2.2-4.2); Glucose 118 mg/dL (74-106); Potassium 3.9 mmol/L (3.5-5.1); Protein, Total 7.5 g/dL (6.4-8.2); Sodium Level 137 mmol/L (136-145)
[2021-03-07 01:09] LABS: Partial Thromboplast Time 34.1 Seconds (24.1-36.2)
[2021-03-07 01:13] LABS: International Normalized Ratio 1.1; Prothrombin Time (Protime)PT. 13.2 SECONDS (11.7-14.9)
== END 2021-03-07 01:53 | disposition home or self-care (01) ==
PROVIDERS: Emergency Provider Emergency Medicine; PCP Family Medicine; Visit Provider Emergency Medicine
DX: M54.50 Low back pain, unspecified (principal); E11.9 Type 2 diabetes mellitus without complications; R19.5 Other fecal abnormalities; I10 Essential (primary) hypertension; M10.9 Gout, unspecified; R11.0 Nausea; K21.9 Gastro-esophageal reflux disease without esophagitis; E66.9 Obesity, unspecified; Z79.84 Long term (current) use of oral hypoglycemic drugs; Z79.899 Other long term (current) drug therapy
CPT/HCPCS: 80053; 81001; 85025; 85610; 85730; 99282; A4216

== ENCOUNTER 2021-03-23 13:56 | Outpatient (CLI) | payer BC, SELFPAY ==
--- NOTE | 2021-03-23 13:59 | CT_ITS ---
STUDY: CT ABDOMEN AND PELVIS WITH CONTRAST REASON FOR EXAM: Male, 60 years old. Ongoing pain. Bowel changes. Concern for uric acid stone or duod RADIATION DOSAGE (If Supplied By Facility): CTDIvol = ( 23.27 ) mGy, DLP = ( 982.33 ) mGycm TECHNIQUE: Transaxial images were obtained from the dome of the diaphragm to the symphysis pubis with oral contrast. Oral and amp; IV Readi-CAT and amp; 100mL Isovue-300 was administered. Sagittal and coronal images were reconstructed. Individualized dose optimization techniques were used for this CT. COMPARISON: None. FINDINGS: The visualized lung bases are unremarkable. Coronary artery calcification. Small pericardial effusion overlying the right cardiac border. There is decreased attenuation of the liver consistent with steatosis. Normal gallbladder and extrahepatic biliary system. Normal spleen. Normal pancreas. Normal bilateral adrenal glands. Normal right kidney. Normal left kidney. Normal visualized stomach. There is evidence of a thickening of several jejunal and proximal ileal small bowel loops. Enteritis should be ruled out. Small lymph nodes are seen within the mesentery in the right lower quadrant. Mesenteric adenitis should BE ruled out. There are scattered colonic diverticula consistent with diverticulosis. The appendix is visualized and appears normal. There is diffuse atherosclerotic calcification of the abdominal aorta, without a demonstrated aneurysm. Normal inferior vena cava. Normal retroperitoneum. Moderate distention of the urinary bladder. There is a small umbilical hernia containing fat. There are mild degenerative changes of the visualized lumbar spine. CT/Abdomen/Pelvis WITH Contrast IMPRESSION: Findings suggestive of enteritis. Lymph nodes are seen within the fat in the right lower quadrant. Mesenteric adenitis should BE ruled out. Fatty infiltration of the liver. Electronically Signed: Markus Esquivel MD at 15:08 EST ,
== END 2021-03-23 23:59 | disposition home or self-care (01) ==
LOC: CT 13:57
PROVIDERS: PCP Family Medicine; Referring Provider Family Medicine; Visit Provider Family Medicine
DX: R10.9 Unspecified abdominal pain (principal); M54.9 Dorsalgia, unspecified; K92.1 Melena; K22.70 Barrett's esophagus without dysplasia
CPT/HCPCS: 74177

== ENCOUNTER 2021-03-27 14:17 | Emergency (ER) | payer BC, SELFPAY ==
[2021-03-27 14:18] VITALS: BP 144/65; PULSE 73; RESP 15; TEMP 36.4; O2SAT 98; BMI 36.6
--- NOTE | 2021-03-27 15:53 | ED.VIS.GI ---
HPI HPI - GI History of Present Illness Chief Complaint: Abd Pain Narrative Narrative: 60-year-old male presenting with GERD, abdominal bloating cramping with eating. He states it is chronic and unchanged. He states he was seen by his primary care physician for this and referred to GI. He has an appointment to get upper and lower endoscopy on Sunday. He states that he ate some cereal today and his stomach became bloated and he had diarrhea. He reports no change in this and states every time he eats this happens. He denies black or bloody stools. He does not have any pain currently. He denies any urinary complaints. He does report intermittent nausea with eating. He states that his acid reflux is very bad. He was last seen about [address] Harrington. This is new he will be following up with in a couple of days. PFSH PFS Medical History Diabetes GERD (gastroesophageal reflux disease) Gout Hypertension Inguinal hernia Home Medications atorvastatin 20 mg PO DAILY 03/07/21 [History Last Taken Unknown] colchicine 0.6 mg PO Q6H PRN PRN 03/07/21 [History Last Taken Unknown] metformin 500 mg PO BID 03/07/21 [History Last Taken Unknown] omeprazole 20 mg PO DAILY #30 capsule 03/07/21 [Rx Last Taken Unknown] sucralfate 03/07/21 [History Last Taken Unknown] Allergy/AdvReac Type Severity Reaction Status Date / Time doxycycline AdvReac Nausea Verified 10/01/17 17:24 Family History unable to obtain Social History Smoking Status: Never smoker ROS ROS ED Constitutional Constitutional ED: Denies chills or fever(s) ENT ENT ED: Denies rhinorrhea or sore throat Cardiovascular Cardiovascular: Denies chest pain or palpitations Respiratory/Chest Respiratory/Chest: Denies cough or dyspnea Gastrointestinal Gastrointestinal: Reports abdominal pain, diarrhea and nausea; Denies constipation or vomiting Genitourinary Genitourinary ED: Denies dysuria or hematuria Musculoskeletal Musculoskeletal: Denies arthralgias or myalgias Integumentary Denies Abrasions or rash Neurologic Neurologic: Denies headache(s) or weakness EXAM Physical Exam Const Vital Signs: 03/27/21 14:18 Temperature 97.6 F L Temperature Source Temporal Pulse Rate 73 Respiratory Rate 15 Blood Pressure 144/65 H Blood Pressure Mean 91 Pulse Ox 98 Oxygen Delivery Method Room Air Positive well nourished General Appearance ED: NAD; Negative for pallor HEENT Reports moist mucous membranes normocephalic and atraumatic Eyes PERRL and EOMs intact bilaterally General Eye ED: Negative for pale conjunctiva or scleral icterus GI non-tender and non-distended Auscultation: normoactive bowel sounds Palpation: soft Neuro Sensorium / Orientation: alert, oriented to person, oriented to place and oriented to time Skin General Skin Exam: Negative for jaundice or pallor Rashes: no rashes MDM MDM MDM Narrative Medical decision making narrative: Patient presenting with diffuse abdominal cramping. He states this is unchanged and has had this for a while. He states he ate cereal today and had a lot of diarrhea. He denied fever, chills. He has mild nausea associated with acid reflux but nothing that is new. He has a follow-up appointment Dr. Harrington in 2 days. He is supposed to get upper and lower endoscopy. I did obtain lab work and his CBC and CMP are within normal limits. Given this I do not believe he needs a CT scan. In addition his abdominal exam is benign. Patient counseled to follow-up with Dr. Harrington. He is discharged home in stable condition. Impression: 1. Abdominal pain 2. History of GERD Lab Data Labs: Laboratory Results - last 24 hr 03/27/21 03/27/21 15:50 15:50 WBC 5.9 RBC 4.72 Hgb 14.2 Hct 40.7 MCV 86.2 MCH 30.1 MCHC 34.9 RDW Std Deviation 38.9 RDW Coeff of Damian 12.4 Plt Count 201 MPV 10.7 Immature Gran % (Auto) 0.200 Neut % (Auto) 51.2 Lymph % (Auto) 33.6 Gillespie % (Auto) 9.2 Eos % (Auto) 4.8 Baso % (Auto) 1.0 Absolute Neuts (auto) 3.0 Absolute Lymphs (auto) 1.97 Nucleated RBC % 0 Sodium 138 Potassium 4.5 Chloride 106 Carbon Dioxide 27.0 Anion Gap 5 BUN 16 Creatinine 0.84 Estim Creat Clear Calc 65.31 Est GFR (MDRD) Af Amer 119 Est GFR (MDRD) Non-Af 98 BUN/Creatinine Ratio 19.0 Glucose 165 H Calcium 8.8 Total Bilirubin 0.50 AST 44 H ALT 50 Alkaline Phosphatase 90 Total Protein 7.6 Albumin 3.5 Globulin 4.1 Albumin/Globulin Ratio 0.9 Lipase 162 Discharge Plan Triage Chief Complaint: Abd Pain ED Provider: Jony Gómez Dx/Rx/DC Orders Instructions: ED Abdominal Pain Unkn Cause Male... Prescriptions: No Action metformin 500 mg tablet 500 mg PO BID RF: 0 atorvastatin 20 mg tablet 20 mg PO DAILY RF: 0 sucralfate 1 gram tablet RF: 0 colchicine 0.6 mg tablet 0.6 mg PO Q6H PRN PRN (Reason: Pain) RF: 0 omeprazole [omeprazole] 20 MG capsule 20 mg PO DAILY Qty: 30 RF: 0 Primary Care Provider: Matt Salazar Referrals: Matt Salazar MD [Primary Care Provider] - Disposition Disposition: Home, Self Care Discharge Date/Time: 03/27/21 16:43
[2021-03-27 16:03] LABS: Absolute Lymphocyte Count 1.97 X10^3/uL (0.83-4.51); Basophil# 0.06 X10^3/uL; Eosinophil# 0.28 X10^3/uL; Eosinophils% 4.8 % (0-5); Hematocrit 40.7 % (40-54); Hemoglobin 14.2 g/dL (13.0-16.5); Lymphocyte # 1.97 X10^3/ul (0.83-4.51); Lymphocyte % 33.6 % (19-41); Mean Corp Hgb Conc 34.9 g/dL (32-36); Mean Corpuscular Hgb 30.1 pg (27.0-32.0); Mean Corpuscular Volume 86.2 fL (80-94); Mean Platelet Vol. 10.7 fl (6.2-12.0); Monocyte# 0.54 X10^3/uL; Monocyte% 9.2 % (0-10); NRBC Flagged by Analyzer 0 % (0-5); Neutrophil # 3.01 X10^3/uL (2.7-7.7); Neutrophil % 51.2 % (47-70); Platelet Count 201 K/mm3 (150-450); RBC Distribution Width CV 12.4 % (11.6-14.6); RBC Distribution Width SD 38.9 fl (35.1-43.9); Red Blood Count 4.72 M/mm3 (4.6-6.2); White Blood Count 5.9 K/mm3 (4.4-11.0)
[2021-03-27 16:29] LABS: ALB/GLOB Ratio 0.9 RATIO (0.9-2.4); AST(SGOT) 44 U/L (15-37); Alanine Aminotransfer ALT/SGPT 50 U/L (16-61); Albumin, Serum 3.5 g/dL (3.2-5.0); Alkaline Phosphatase 90 U/L (45-117); Anion Gap 5 (5-15); BUN 16 mg/dL (7-18); Calcium,Total 8.8 mg/dL (8.5-10.1); Chloride 106 mmol/L (98-107); Creatinine, Serum 0.84 mg/dL (0.70-1.30); EST Glomerular Filtration Rate 98 mL/min (>60); Est Glom Filt Rate - Afr Amer 119 mL/min (>60); Estimated Creatinine Clearance 65.31 ml/min; Globulin 4.1 g/dL (2.2-4.2); Glucose 165 mg/dL (74-106); Lipase 162 U/L (73-393); Potassium 4.5 mmol/L (3.5-5.1); Protein, Total 7.6 g/dL (6.4-8.2); Sodium Level 138 mmol/L (136-145)
== END 2021-03-27 16:43 | disposition home or self-care (01) ==
PROVIDERS: Emergency Provider Student in an Organized Health Care Education/Training Program; PCP Family Medicine; Visit Provider Student in an Organized Health Care Education/Training Program
DX: E11.9 Type 2 diabetes mellitus without complications (principal); R10.9 Unspecified abdominal pain; I10 Essential (primary) hypertension; M10.9 Gout, unspecified; K21.9 Gastro-esophageal reflux disease without esophagitis; Z79.84 Long term (current) use of oral hypoglycemic drugs; Z79.899 Other long term (current) drug therapy
CPT/HCPCS: 80053; 83690; 85025; 99283; A4216

== ENCOUNTER 2021-04-15 18:09 | Emergency (ER) | payer BC, SELFPAY ==
[2021-04-15 18:10] VITALS: BP 159/82; PULSE 70; RESP 16; TEMP 36.9; O2SAT 97; BMI 34.8
[2021-04-15 18:12] VITALS: BP 159/82; PULSE 70; RESP 16; TEMP 36.9; O2SAT 97
--- NOTE | 2021-04-15 19:39 | CT_ITS ---
INDICATION: LLQ abdominal pain EXAMINATION: CT ABDOMEN AND PELVIS WITH CONTRAST - CT Abdomen And Pelvis W/ Contrast Injection TECHNIQUE: Helically acquired images were obtained of the abdomen and pelvis following IV contrast. A radiation dose optimization technique was used for this scan. IV Contrast dosage and agent: 100 mL of ISOVUE-300 Oral contrast: None. COMPARISON: 03/23/2021 CT abdomen and pelvis. FINDINGS: LOWER CHEST: Lung bases are clear. No cardiomegaly or suspicious pericardial effusion. Trace fluid anteriorly is felt to be within normal limits. No visible coronary artery calcifications. There is a hiatal hernia. LIVER: Diffuse mild decreased density. Normal size and contour. No focal mass. GALLBLADDER AND BILIARY TREE: No calcified gallstones. No gallbladder distension or wall edema. No intra- or extrahepatic biliary ductal dilation. PANCREAS: No focal cystic or solid mass. SPLEEN: Normal size without focal cystic or solid mass. ADRENAL GLANDS: No nodules. KIDNEYS, URETERS and BLADDER: Normal renal size and position. No mass. Note of accessory renal artery to the inferior pole right kidney. No hydronephrosis. Bladder is unremarkable. PERITONEUM: No ascites or free air. No other fluid collection. BOWEL: No evidence of acute appendicitis. No abnormally distended bowel loops or air fluid levels. No wall thickening or mass. Minimal fat density in the distal ileum is most likely within normal limits. This finding can be associated with inflammatory bowel disease and a symptomatic patient but can be seen in asymptomatic patients. No focal inflammatory changes. Scattered diverticuli seen in the descending colon. LYMPH NODES: No enlarged mesenteric or retroperitoneal lymph nodes. VESSELS: Aorta is non-dilated. Atherosclerotic mural calcifications. No stenosis. REPRODUCTIVE ORGANS: Within normal limits ABDOMINAL WALL: Small fat filled umbilical hernia. BONES: No lytic or blastic abnormality. Mild multilevel degenerative endplate changes most notably at L3-4 level. Degenerative anterior osteophytes lower thoracic spine. Mild degenerative changes bilateral hips. CT/Abdomen/Pelvis W IV Cont ONLY IMPRESSION: No acute intra-abdominal pathology. Small sliding hiatal hernia. Mild hepatic steatosis. Descending colon diverticulosis without diverticulitis. Minimal mural fat distal ileum can be seen with inflammatory bowel disease however is most likely a normal finding in a patient without symptoms to suggest inflammatory bowel disease. Electronically Signed: Inder Payan DO at 21:07 EST ,
--- NOTE | 2021-04-15 19:40 | ED.VIS.GI ---
HPI HPI - GI History of Present Illness Chief Complaint: Abd Pain Narrative Narrative: 60-year-old male presenting for evaluation of abdominal pain which he states is chronic and intermittent. He has been seen in the emergency room for this before as well as followed up with his primary care physician. On his last visit to the emergency room he was supposed to follow-up with Dr. Harrington but was able to make this follow-up and was referred to Dr. Nicholson. He states that he is supposed to have a colonoscopy coming up in the near future. Patient does also report chronic intermittent back pain this is unchanged. Patient is able to ambulate and bend over at the waist. No loss of bladder bowel control. No saddle anesthesia. Patient does report that he had nausea today and believes he had a fever because he felt hot. He states he took nothing for fever and he is currently afebrile. Patient reports chronic diarrhea which is unchanged. [facility] Medical History Diabetes GERD (gastroesophageal reflux disease) Gout Hypertension Inguinal hernia Home Medications atorvastatin 20 mg PO DAILY 03/07/21 [History Last Taken Unknown] colchicine 0.6 mg PO Q6H PRN PRN 03/07/21 [History Last Taken Unknown] metformin 500 mg PO BID 03/07/21 [History Last Taken Unknown] omeprazole 20 mg PO DAILY #30 capsule 03/07/21 [Rx Last Taken Unknown] sucralfate 03/07/21 [History Last Taken Unknown] ondansetron 4 mg PO Q8H PRN #14 tab 04/15/21 [Rx Last Taken Unknown] Allergy/AdvReac Type Severity Reaction Status Date / Time doxycycline AdvReac Nausea Verified 10/01/17 17:24 Social History Smoking Status: Current some day smoker tobacco type: cigarettes ROS ROS ED Constitutional Constitutional ED: Reports subjective ENT ENT ED: Denies rhinorrhea or sore throat Cardiovascular Cardiovascular: Denies chest pain or palpitations Respiratory/Chest Respiratory/Chest: Denies cough or dyspnea Gastrointestinal Gastrointestinal: Reports abdominal pain, diarrhea and nausea Genitourinary Genitourinary ED: Denies dysuria or hematuria Musculoskeletal Musculoskeletal: Denies arthralgias or myalgias Integumentary Denies rash Neurologic Neurologic: Denies headache(s) or paresthesias Psychiatric Psychiatric: Denies anxiety or depression EXAM Physical Exam Const Vital Signs: 04/15/21 18:10 04/15/21 18:12 Temperature 98.5 F 98.5 F Temperature Source Temporal Temporal Pulse Rate 70 70 Respiratory Rate 16 16 Blood Pressure 159/82 H 159/82 H Blood Pressure Mean 107 107 Pulse Ox 97 97 Oxygen Delivery Method Room Air Room Air Positive well nourished and obese General Appearance ED: NAD; Negative for pallor Nutritional Appearance: obese HEENT Reports moist mucous membranes and dry mucous membranes normocephalic and atraumatic Mouth ED: Yes dry mucous membranes Mouth: dry mucous membranes Eyes PERRL and EOMs intact bilaterally Cardio regular rate and regular rhythm GI non-distended Auscultation: normoactive bowel sounds Palpation: soft; Negative for guarding or rigid Back/Spine no CVA tenderness Neuro Sensorium / Orientation: alert, oriented to person, oriented to place and oriented to time Psych mental status grossly normal and thought process normal Skin General Skin Exam: Negative for jaundice or pallor MDM MDM MDM Narrative Medical decision making narrative: Patient presenting with chronic lower back pain and abdominal pain which is unchanged. Patient is supposed to follow-up with Dr. Nicholson outpatient and is currently awaiting a colonoscopy. Vital signs are stable and he is afebrile. CBC and CMP within normal limits. Patient was given Zofran for his nausea. CT of the abdomen pelvis with IV contrast is performed and shows no acute intra-abdominal pathology. There are some findings consistent with possible inflammatory bowel disease however there does not appear to be an inflammation. Given that his work-up is ultimately normal I will discharge him home with a prescription for Zofran. He is given instructions on foods to avoid. He will follow-up with Dr. Nichoslon. Impression: 1. Acute on chronic abdominal pain 2. Chronic lower back pain Lab Data Attestation: I reviewed the patient's lab results. Labs: Laboratory Results - last 24 hr 04/15/21 04/15/21 19:50 19:50 WBC 7.7 RBC 4.88 Hgb 15.0 Hct 42.2 MCV 86.5 MCH 30.7 MCHC 35.5 RDW Std Deviation 38.5 RDW Coeff of Damian 12.2 Plt Count 216 MPV 10.8 Immature Gran % (Auto) 0.400 Neut % (Auto) 67.4 Lymph % (Auto) 25.8 Murray % (Auto) 5.0 Eos % (Auto) 0.7 Baso % (Auto) 0.7 Absolute Neuts (auto) 5.2 Absolute Lymphs (auto) 1.97 Nucleated RBC % 0 Sodium 136 Potassium 4.2 Chloride 104 Carbon Dioxide 26.0 Anion Gap 6 BUN 13 Creatinine 0.90 Estim Creat Clear Calc 63.76 Est GFR (MDRD) Af Amer 110 Est GFR (MDRD) Non-Af 91 BUN/Creatinine Ratio 14.4 Glucose 209 H Calcium 9.2 Total Bilirubin 0.40 AST 27 ALT 55 Alkaline Phosphatase 85 Total Protein 7.7 Albumin 3.8 Globulin 3.9 Albumin/Globulin Ratio 1.0 Radiography Diagnostic Testing: Clinical Impression(s) from Imaging Studies Abdomen/Pelvis CT 04/15/21 19:39 IMPRESSION: No acute intra-abdominal pathology. Small sliding hiatal hernia. Mild hepatic steatosis. Descending colon diverticulosis without diverticulitis. Minimal mural fat distal ileum can be seen with inflammatory bowel disease however is most likely a normal finding in a patient without symptoms to suggest inflammatory bowel disease. Electronically Signed: Inder Payan DO at 21:07 EST , Discharge Plan Triage Chief Complaint: Abd Pain ED Provider: Jony Gómez Dx/Rx/DC Orders Instructions: ED Abdominal Pain Unkn Cause Male... Prescriptions: New ondansetron 4 mg tablet,disintegrating 4 mg PO Q8H PRN (Reason: nausea and vomiting) Qty: 14 RF: 0 No Action metformin 500 mg tablet 500 mg PO BID RF: 0 atorvastatin 20 mg tablet 20 mg PO DAILY RF: 0 sucralfate 1 gram tablet RF: 0 colchicine 0.6 mg tablet 0.6 mg PO Q6H PRN PRN (Reason: Pain) RF: 0 omeprazole [omeprazole] 20 MG capsule 20 mg PO DAILY Qty: 30 RF: 0 Primary Care Provider: Matt Salazar Referrals: Matt Salazar MD [Primary Care Provider] - Tom Nicholson DO [STAFF PHYSICIAN] - As soon as possible Disposition Disposition: Home, Self Care
[2021-04-15] MEDS: Ondansetron 4 MG/2 ML Vial IV (19:49)
[2021-04-15 20:01] LABS: Absolute Lymphocyte Count 1.97 X10^3/uL (0.83-4.51); Absolute Neutrophil Count 5.2 X10^3/uL (2.0-7.7); Basophil# 0.05 X10^3/uL; Basophil% 0.7 % (0-1); Eosinophil# 0.05 X10^3/uL; Eosinophils% 0.7 % (0-5); Hematocrit 42.2 % (40-54); Lymphocyte # 1.97 X10^3/ul (0.83-4.51); Lymphocyte % 25.8 % (19-41); Mean Corp Hgb Conc 35.5 g/dL (32-36); Mean Corpuscular Hgb 30.7 pg (27.0-32.0); Mean Corpuscular Volume 86.5 fL (80-94); Mean Platelet Vol. 10.8 fl (6.2-12.0); Monocyte# 0.38 X10^3/uL; NRBC Flagged by Analyzer 0 % (0-5); Neutrophil # 5.17 X10^3/uL (2.7-7.7); Neutrophil % 67.4 % (47-70); Platelet Count 216 K/mm3 (150-450); RBC Distribution Width CV 12.2 % (11.6-14.6); RBC Distribution Width SD 38.5 fl (35.1-43.9); Red Blood Count 4.88 M/mm3 (4.6-6.2); White Blood Count 7.7 K/mm3 (4.4-11.0)
[2021-04-15 20:20] LABS: AST(SGOT) 27 U/L (15-37); Alanine Aminotransfer ALT/SGPT 55 U/L (16-61); Albumin, Serum 3.8 g/dL (3.2-5.0); Alkaline Phosphatase 85 U/L (45-117); Anion Gap 6 (5-15); BUN 13 mg/dL (7-18); BUN/Creat Ratio 14.4 RATIO (10-20); Calcium,Total 9.2 mg/dL (8.5-10.1); Chloride 104 mmol/L (98-107); EST Glomerular Filtration Rate 91 mL/min (>60); Est Glom Filt Rate - Afr Amer 110 mL/min (>60); Estimated Creatinine Clearance 63.76 ml/min; Globulin 3.9 g/dL (2.2-4.2); Glucose 209 mg/dL (74-106); Potassium 4.2 mmol/L (3.5-5.1); Protein, Total 7.7 g/dL (6.4-8.2); Sodium Level 136 mmol/L (136-145)
[2021-04-15 21:29] VITALS: BP 125/70; PULSE 75; RESP 16; O2SAT 95
== END 2021-04-15 21:34 | disposition home or self-care (01) ==
PROVIDERS: Emergency Provider Student in an Organized Health Care Education/Training Program; PCP Family Medicine; Visit Provider Student in an Organized Health Care Education/Training Program
DX: M54.50 Low back pain, unspecified (principal); E11.9 Type 2 diabetes mellitus without complications; R10.9 Unspecified abdominal pain; G89.29 Other chronic pain; R11.0 Nausea; I10 Essential (primary) hypertension; K21.9 Gastro-esophageal reflux disease without esophagitis; F17.210 Nicotine dependence, cigarettes, uncomplicated; M10.9 Gout, unspecified; Z79.84 Long term (current) use of oral hypoglycemic drugs; Z79.899 Other long term (current) drug therapy
CPT/HCPCS: 74177; 80053; 85025; 96374; 99284; Q9967; A4216; J2405

== ENCOUNTER 2021-05-12 15:20 | Outpatient (CLI) | payer BC, SELFPAY ==
[2021-05-12 17:35] LABS: Hematocrit 42.5 % (40-54); Hemoglobin 14.6 g/dL (13.0-16.5); Mean Corp Hgb Conc 34.4 g/dL (32-36); Mean Corpuscular Hgb 29.8 pg (27.0-32.0); Mean Corpuscular Volume 86.7 fL (80-94); Mean Platelet Vol. 10.7 fl (6.2-12.0); Platelet Count 230 K/mm3 (150-450); RBC Distribution Width CV 11.9 % (11.6-14.6); RBC Distribution Width SD 37.6 fl (35.1-43.9); White Blood Count 6.6 K/mm3 (4.4-11.0)
[2021-05-12 17:55] LABS: ALB/GLOB Ratio 0.9 RATIO (0.9-2.4); AST(SGOT) 34 U/L (15-37); Alanine Aminotransfer ALT/SGPT 58 U/L (16-61); Albumin, Serum 3.8 g/dL (3.2-5.0); Alkaline Phosphatase 75 U/L (45-117); Anion Gap 8 (5-15); BUN 11 mg/dL (7-18); BUN/Creat Ratio 13.1 RATIO (10-20); Calcium,Total 9.6 mg/dL (8.5-10.1); Chloride 103 mmol/L (98-107); Creatinine, Serum 0.84 mg/dL (0.70-1.30); EST Glomerular Filtration Rate 99 mL/min (>60); Est Glom Filt Rate - Afr Amer 119 mL/min (>60); Globulin 4.2 g/dL (2.2-4.2); Glucose 161 mg/dL (74-106); Lipase 95 U/L (73-393); Potassium 4.2 mmol/L (3.5-5.1); Sodium Level 134 mmol/L (136-145)
[2021-05-12 18:42] LABS: Hemoglobin A1c 6.8 % (3.8-5.6)
== END 2021-05-12 23:59 | disposition home or self-care (01) ==
LOC: MFPLAB 15:21
PROVIDERS: PCP Family Medicine; Referring Provider Family Medicine; Visit Provider Family Medicine
DX: R11.0 Nausea (principal); E11.9 Type 2 diabetes mellitus without complications
CPT/HCPCS: 36415; 80053; 83036; 83690; 85027

== ENCOUNTER → 2021-07-07 | Outpatient (CLI) | payer BC, SELFPAY ==
[2021-07-07 13:19] LABS: International Normalized Ratio 1.1; Prothrombin Time (Protime)PT. 13.7 SECONDS (11.7-14.9)
== END | disposition home or self-care (01) ==
LOC: LAB 11:42
PROVIDERS: PCP Family Medicine; Referring Provider Nurse Practitioner Adult Health; Visit Provider Nurse Practitioner Adult Health
DX: K76.0 Fatty (change of) liver, not elsewhere classified (principal)
CPT/HCPCS: 36415; 85610

== ENCOUNTER → 2021-07-07 | Outpatient (CLI) | payer BC, SELFPAY ==
[2021-07-07 16:54] LABS: Absolute Lymphocyte Count 1.79 X10^3/uL (0.83-4.51); Absolute Neutrophil Count 5.3 X10^3/uL (2.0-7.7); Basophil# 0.05 X10^3/uL; Basophil% 0.6 % (0-1); Eosinophils% 1.3 % (0-5); Hematocrit 42.3 % (40-54); Hemoglobin 14.6 g/dL (13.0-16.5); Lymphocyte # 1.79 X10^3/ul (0.83-4.51); Mean Corp Hgb Conc 34.5 g/dL (32-36); Mean Corpuscular Hgb 29.9 pg (27.0-32.0); Mean Corpuscular Volume 86.7 fL (80-94); Mean Platelet Vol. 10.6 fl (6.2-12.0); Monocyte# 0.52 X10^3/uL; Monocyte% 6.7 % (0-10); NRBC Flagged by Analyzer 0 % (0-5); Neutrophil # 5.28 X10^3/uL (2.7-7.7); Neutrophil % 67.9 % (47-70); Platelet Count 214 K/mm3 (150-450); RBC Distribution Width CV 12.8 % (11.6-14.6); RBC Distribution Width SD 39.8 fl (35.1-43.9); Red Blood Count 4.88 M/mm3 (4.6-6.2); White Blood Count 7.8 K/mm3 (4.4-11.0)
[2021-07-07 17:09] LABS: Erythrocyte Sedimentation Rate 23 mm/hr (0-20)
[2021-07-07 17:22] LABS: Hemoglobin A1c 7.3 % (3.8-5.6)
[2021-07-07 17:34] LABS: ALB/GLOB Ratio 0.9 RATIO (0.9-2.4); AST(SGOT) 30 U/L (15-37); Alanine Aminotransfer ALT/SGPT 69 U/L (16-61); Albumin, Serum 3.6 g/dL (3.2-5.0); Alkaline Phosphatase 76 U/L (45-117); Anion Gap 9 (5-15); BUN 17 mg/dL (7-18); BUN/Creat Ratio 14.2 RATIO (10-20); CRP < 2.90 mg/L (0.0-3.0); Calcium,Total 8.8 mg/dL (8.5-10.1); Chloride 106 mmol/L (98-107); EST Glomerular Filtration Rate 65 mL/min (>60); Est Glom Filt Rate - Afr Amer 79 mL/min (>60); Ferritin 278 ng/mL (26-388); Globulin 4.1 g/dL (2.2-4.2); Glucose 264 mg/dL (74-106); LDH 172 U/L (87-241); Potassium 3.8 mmol/L (3.5-5.1); Protein, Total 7.7 g/dL (6.4-8.2); Sodium Level 138 mmol/L (136-145)
[2021-07-08 11:50] LABS: Hepatitis B Surface Antibody Non-Reactive
[2021-07-09 06:08] LABS: HEPATITIS B SURFACE AG Negative (Negative); Hep C Antibodies 0.1 s/co ratio (0.0-0.9); Hepatitis A IgM Antibody Negative (Negative); Hepatitis B Core AB IgM Negative (Negative)
[2021-07-09 07:35] LABS: Hepatitis A AB, Total Negative (Negative)
[2021-07-11 13:07] LABS: Anti-Centromere B Ab <0.2 AI (0.0-0.9); Anti-Chromatin <0.2 AI (0.0-0.9); Anti-Jo <0.2 AI (0.0-0.9); Anti-Scleroderma-70 AB <0.2 AI (0.0-0.9); RNP Ab <0.2 AI (0.0-0.9); SJOGREN'S Anti-SS-A test < 0.2 AI (0.0-0.9); SJOGREN'S Anti-SS-B test < 0.2 AI (0.0-0.9); Smith Ab <0.2 AI (0.0-0.9)
[2021-07-11 15:43] LABS: Anti-Mitochondrial AB <20.0 Units (0.0-20.0); Anti-dsDNA Ab 1 IU/mL (0-9)
[2021-07-12 22:07] LABS: Angiotensin Convert Enzyme 29 U/L (14-82); Ceruloplasmin 20.5 mg/dL (16.0-31.0); Cytoplasmic Ab (C-ANCA) <1:20 titer (Neg:<1:20)
[2021-07-12 22:10] LABS: Anti-Smooth Muscle ABS 14 Units (0-19); Copper, Serum or Plasma 85 ug/dL (69-132); Haptoglobin 197 mg/dL (32-363); Perinuclear Ab (P-ANCA) <1:20 titer (Neg:<1:20)
== END | disposition home or self-care (01) ==
LOC: MFPLAB 15:30
PROVIDERS: PCP Family Medicine; Visit Provider Nurse Practitioner Adult Health
DX: K76.0 Fatty (change of) liver, not elsewhere classified (principal)
CPT/HCPCS: 36415; 80053; 80074; 82140; 82164; 82390; 82525; 82728; 83010; 83036; 83516; 83615; 85025; 85610; 85652; 86140; 86225; 86235; 86256; 86706; 86708

== ENCOUNTER 2021-08-20 09:51 | Emergency (ER) | payer BC, SELFPAY ==
[2021-08-20 09:52] VITALS: BP 129/78; PULSE 83; RESP 18; TEMP 36.6; O2SAT 98; BMI 35.9
--- NOTE | 2021-08-20 10:04 | EDS_ITS ---
HPI History of Present Illness Chief Complaint: Lower Extremity Injury Narrative Narrative: Patient states he has gout in his left great toe. He has had it for about 2 or 3 days. He has had it many times before. There was no trauma or injury. He feels fine. No fevers chills sweats recent skin infections, dental infections or others. He just had blood work a month ago. Hemoglobin A1c was just over 7. I did look at these results on the computer. He has used colchicine with suc cess before. Nothing really makes it better. Touching makes it worse. PFSH PFSH Medical History Diabetes GERD (gastroesophageal reflux disease) Gout Hypertension Inguinal hernia Home Medications atorvastatin 20 mg tablet 20 mg PO DAILY 03/07/21 [History Last Taken Unknown] colchicine 0.6 mg tablet 0.6 mg PO Q6H PRN PRN Pain 03/07/21 [History Last Taken Unknown] metformin 500 mg tablet 500 mg PO BID 03/07/21 [History Last Taken Unknown] pantoprazole 40 mg tablet,delayed release 40 mg PO QAM #90 tabs 07/07/21 [Rx Last Taken Unknown] colchicine 0.6 mg tablet 0.6 mg PO TID #10 tabs 08/20/21 [Rx Last Taken Unknown] Allergy/AdvReac Type Severity Reaction Status Date / Time doxycycline AdvReac Nausea Verified 08/20/21 09:54 Social History Smoking Status: Current some day smoker tobacco type: cigarettes ROS ROS ED Constitutional Constitutional ED: Denies chills or fever(s) Cardiovascular Cardiovascular: Denies chest pain Respiratory/Chest Respiratory/Chest: Denies cough or dyspnea Gastrointestinal Gastrointestinal: Denies nausea or vomiting Musculoskeletal Musculoskeletal: Reports other Details: Left great toe pain. ; Denies arthralgias or myalgias Integumentary Denies abscess, Abrasions or rash Neurologic Neurologic: Denies paresthesias or weakness Endocrine Endocrinology: Denies polydipsia or polyuria Hematologic/Lymphatic Hematologic/Lymphatic: Denies easy bleeding or easy bruising Allergic/Immunologic Allergic/Immunologic ED: Denies urticaria EXAM Physical Exam Const Vital Signs: 08/20/21 09:52 Temperature 97.9 F Temperature Source Temporal Pulse Rate 83 Respiratory Rate 18 Blood Pressure 129/78 H Blood Pressure Mean 95 Pulse Ox 98 Oxygen Delivery Method Room Air Positive well nourished and well developed General Appearance ED: well developed and NAD HEENT atraumatic Eyes Eyes Narrative: No icterus. Resp normal respiratory effort and clear to auscultation bilaterally Cardio regular rate and regular rhythm GI non-tender and non-distended Inspection: Negative for abdominal distention Back/Spine no CVA tenderness Extremity Extremity Narrative: There is mild swelling and just a hint of erythema around the left first MTP joint. Mild pain with motion. No lymphangitic streaking. No swelling in any other area. Neuro Sensorium / Orientation: alert Skin Lesions: no lesions MDM MDM MDM Narrative Medical decision making narrative: Patient's exam history and past history are all consistent with this being gout. I do not think his presentation justifies joint aspiration or blood work. We will treat him with colchicine. This has been successful before. If he develops fevers chills spreading redness or any other symptoms, nausea, vomiting, weakness he should return. Discharge Plan Triage Chief Complaint: Lower Extremity Injury ED Provider: Callum Daniels Dx/Rx/DC Orders Clinical Impression: Gout of left foot Instructions: ED Gout, ED Gout Diet Prescriptions: New colchicine 0.6 mg tablet 0.6 mg PO TID Qty: 10 0RF Rx Instructions: 1 tablet at as needed gout pain. Do not take more than 3 tablets total in a day. No Action pantoprazole 40 mg tablet,delayed release (DR/EC) 40 mg PO QAM Qty: 90 0RF metformin 500 mg tablet 500 mg PO BID atorvastatin 20 mg tablet 20 mg PO DAILY colchicine 0.6 mg tablet 0.6 mg PO Q6H PRN PRN (Reason: Pain) Primary Care Provider: Matt Salazar Referrals: Matt Salazar MD [Primary Care Provider] - 3-5 Days if not improving Disposition Disposition: Home, Self Care
[2021-08-20] MEDS: Colchicine 0.6 MG TABLET 1.2 MG PO (10:21)
== END 2021-08-20 10:22 | disposition home or self-care (01) ==
LOC: ED 10:12
PROVIDERS: Emergency Provider Emergency Medicine; PCP Family Medicine; Visit Provider Emergency Medicine
DX: M10.9 Gout, unspecified (principal); E11.9 Type 2 diabetes mellitus without complications; I10 Essential (primary) hypertension; K21.9 Gastro-esophageal reflux disease without esophagitis; F17.210 Nicotine dependence, cigarettes, uncomplicated; Z79.84 Long term (current) use of oral hypoglycemic drugs
CPT/HCPCS: 99283

== ENCOUNTER → 2021-10-11 | Outpatient (CLI) | payer BC, SELFPAY | END | disposition home or self-care (01) | PROVIDERS: PCP Family Medicine; Visit Provider Family Medicine | DX: Z20.822 Contact with and (suspected) exposure to COVID-19 (principal) | CPT/HCPCS: 87635; U0003; U0005 ==

== ENCOUNTER 2021-11-14 10:39 | Day surgery (SDC) | payer BC, SELFPAY ==
--- NOTE | 2021-09-12 10:43 | SUR.PREOP ---
talked with this patient concerning the situation with him going home after procedures tomorrow- pt had told pat nurse that he had noone to take him home or ride with him home with hosptital transport- pt cont to say he has noone to take him home- he says he is on his way to see dr woodward today to discuss the situation. this nurse then called dr woodward's office and talked with nurse and informed her of the situation so dr woodward will know what is the concerns. dr diggs's office called and message left
[2021-11-14] VITALS (7 sets, daily range): BP systolic 86–128; BP diastolic 47–71; PULSE 62–73; RESP 16; TEMP 36.6–36.7; O2SAT 91–96; BMI 33.7
--- NOTE | 2021-11-14 | IMM_PTH ---
PATIENT: TIA GRIFFIN LOC: EN U#:[id number] AGE/SX: 61/M ROOM: RE11/14/[address]: Dr. Tom Nicholson DO : 1960 BED: DIS: 11/14/2021 SPEC #: [id number] RECD: 11/16/21 13:04 STATUS: MARCI REQ #: [id number] BALJEET: 11/14/21 00:[address]: Tom Nicholson DEPT: IMMUNOHISTOCHEMISTRY RECD BY: Erna Nieves ENTERED: 11/16/21 13:04 SP TYPE: IMMUNO OTHR DR: Dr. Matt Salazar MD Tissues: A - Esophageal mucous membrane Procedures: P53 (initial) KI-67 (add) PHYSICIAN & INSTITUTION [place] [id number] SPECIMEN INFORMATION: Tissue Source: A ? Distal esophagus biopsy Clinical Info: Esophageal stricture, GERD, NAFLD Specimen Number: [id number] CPT code: 93163, 68773 METHODOLOGY: Deparaffinized sections of prefer/formalin-fixed tissue or PAP/DQ stained slides are incubated with monoclonal/polyclonal antibodies/oligonucleotide probes. Localization is made via biotin free immunoperoxidase method. Appropriate controls are performed and reacted as expected. Results on target cell population are indicated in the following table: RESULTS: ANTIBODY / CLONE RESULT Block A P53 (DO-7) negative Ki-67 (30-9) positive, low These tests were developed and their performance characteristics determined by [facility]. They may not have been cleared or approved by the U.S. Food and Drug Administration. The FDA has determined that such clearance or approval is not necessary. The above immunohistochemical/dualISH markers are ordered and reviewed by the Pathologist. INTERPRETATION: A. Distal esophagus, biopsy: Negative for dysplasia. TUCKER:katelyn 11/17/2021
--- NOTE | 2021-11-14 | ESO_PTH ---
PATIENT: TIA GRIFFIN LOC: EN U#:[id number] AGE/SX: 61/M ROOM: RE11/14/[address]: Dr. Tom Nicholson DO : 1960 BED: DIS: 11/14/2021 SPEC #: [id number] RECD: 11/14/21 13:38 STATUS: MARCI LAURA #: [id number] BALJEET: 11/14/21 00:[address]: Tom Nicholson DEPT: SURGICAL PATHOLOGY RECD BY: Avery Peoples ENTERED: 11/15/21 10:18 SP TYPE: DANIELLA RUSH DR: Dr. Matt Salazar MD Tissues: A - Esophagus, NOS B - Ileum, NOS Procedures: Special Stain Group II Surgery Specimen Level IV Alcian Blue/PAS (control) HEADER OPERATION: Colonoscopy, EGD (MAC), biopsy PRE-OP DIAGNOSIS: History of esophageal stricture, GERD, nonalcoholic fatty liver disease TISSUE SUBMITTED: A ? Distal esophagus biopsy, B ? Terminal ileum biopsy MICROSCOPIC DIAGNOSIS A. 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 Acute and chronic inflammation and changes consistent with gastroesophageal reflux disease. Negative for dysplasia. See comment. B. Terminal ileum, biopsy: Fragments of small intestinal mucosa, no pathologic diagnosis. SJ:rg 11/16/2021 COMMENT A. Alcian blue/PAS stain with matched control is used in the evaluation of the specimen. Immunohistochemistry ([id number]) for P53 and Ki-67 will be performed and results will be reported separately. MICROSCOPIC DESCRIPTION Slides are reviewed. GROSS DESCRIPTION A - Received in fixative is one container labeled with the patient's name and designated distal esophagus biopsy. The specimen consists of multiple irregular fragments of light jacinto soft tissue that in aggregate measure 0.6 x 0.3 x 0.1 cm. The specimen is totally submitted in one cassette. B - Received in fixative is one container labeled with the patient's name and designated terminal ileum biopsy. The specimen consists of two irregular fragments of light jacinto soft tissue that in aggregate measure 0.6 x 0.3 x 0.1 cm. The specimen is totally submitted in one cassette. / TUCKER:katelyn 11/15/2021 TC:2 CPT: 90212 x2, 84094
--- NOTE | 2021-11-14 10:53 | HP.PCM_ITS ---
History and Physical Date of Admission: 11/14/21 Details: TIA GRIFFIN, is a 60 M who presents to the office today for heartburn, hx Adorno's,? esophageal stricture, and need for screening colonoscopy. Pt reports long hx heartburn. 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 Heartburn is worse with pizza, orange juice. He is taking omeprazole 20 mg daily but still has heartburn, take Rolaids at bedtime. Also takes Maalox prn. Used sucralfate earlier this year, felt better when he took it. Currently no difficulty swallowing; he had dysphagia previously which was treated successfully with dilation by Dr Harrington. Last EGD was about 3 yrs ago, told to repeat in 3 yrs. No current nausea or vomiting. No abdominal pain. No diarrhea, constipation, melena, hematochezia. No prior colonoscopy. Takes 2 nasal sprays for allergic rhinitis. Cough especially in the morning.? Comorbidities include obesity, gout, HTN, diabetes. 04/15/21 CT/Abdomen/Pelvis W IV Cont IMPRESSION: ? No acute intra-abdominal pathology. ? Small sliding hiatal hernia. ? Mild hepatic steatosis. ? Descending colon diverticulosis without diverticulitis. ? Minimal mural fat distal ileum can be seen with inflammatory bowel disease however is most likely a normal finding in a patient without symptoms to suggest inflammatory bowel disease. ROS Const Constitutional: No fatigue ENT ENT: No difficulty swallowing Gastro GI: Positive for abdominal pain, diarrhea and heartburn; No belching, bloating, change in bowel habits, change in stool character, coffee ground emesis, constipation, cramping, difficulty swallowing, feeling full early, excessive flatus, incontinent of stools, Vomiting blood/hematemesis, Blood in stool, loose stools, Black,tarry stools, nausea/dyspepsia, pain with swallowing, vomiting or other Musc Musculoskeletal: No joint pain Skin Skin: No yellowing of the eye or itchy eyes Psych Psychiatric: No anxiety and No depression Endo Endocrine: No fatigue Aller/Imm Allergy/Immunologic: No itchy eyes Karri/Lymp Hematologic/Lymphatic: No easy bleeding or easy bruising Exam Const General: cooperative, comfortable, well developed and well groomed Nutritional Appearance: obese Resp Effort & Inspection: normal respiratory effort GI Palpation: soft, no hepatosplenomegaly, no masses and nontender Skin General: no rashes or lesions noted Quality Reporting Tobacco Screening ([facility] 138) Smoking Status: Current some day smoker Assessment and Plan Assessment and Plan (1) History of esophageal stricture: ?Status:?Acute (2) GERD (gastroesophageal reflux disease): ?Status:?Acute (3) Colonoscopy planned: ?Status:?Acute (4) NAFLD (nonalcoholic fatty liver disease): ?Status:?Acute ? ? ? Orders:?Orders: ? Abdomen Limited TodayA K76.0 ? ? Elastography Parenchyma/Organ Today K76.0 ? ? Ammonia Today K76.0 ? ? KINJAL Comprehensive Panel Today K76.0 ? ? ANCA Today K76.0 ? ? Angiotensin Convert Enzyme Today K76.0 ? ? Anti-Mitochondrial AB Today K76.0 ? ? Anti-Smooth Muscle ABS Today K76.0 ? ? Ferritin Today K76.0 ? ? Erythrocyte Sed Rate Today K76.0 ? ? CRP Today K76.0 ? ? Copper, Serum or Plasma Today K76.0 ? ? Comprehensive Metabolic Profil Today K76.0 ? ? Ceruloplasmin Today K76.0 ? ? CBC W/Diff, Automated Today K76.0 ? A ? Haptoglobin Today K76.0 ? ? Hemoglobin A1c Today K76.0 ? ? Hepatitis Panel Acute Today K76.0 ? ? LDH Today K76.0 ? ? Prothrombin Time w/INR Today K76.0 ?Plan - Kiana La RAIL EXPRESS CLERK, RAIL EXPRESS CLERK-C: 60 yr old male with GERD, hx Adorno's, hx esophageal stricture. Will change to pantoprazole 40 mg QAM and one month of sucralfate QAC. Will schedule him for EGD and screening colonoscopy, with f/u 2 wks after. For fatty liver, we'll get labs and liver US and elastography. Plan Details Other Medications: ?New: ? sucralfate 1 g PO QAC 1 month 90 tabs 0RF ? ? ? pantoprazole 40 mg PO QAM 90 tabs 0RF ?Discontinued: ? sucralfate ?? Discontinued Reason:? Pt no longer taking ? omeprazole ?? Discontinued Reason:? Order Changed 20 mg? PO DAILY 30 CAPSULES 0RF ? ? ? ondansetron ?? Discontinued Reason:? Pt no longer taking 4 mg? PO Q8H PRN 14 tabs 0RF nausea and vomiting ? ? I have re-examined the patient. There are no clinical changes since date of exam.
[2021-11-14] MEDS: Lactated Ringers 1,000 ML 15 ML IV (11:23)
[2021-11-14 11:50] LABS: Bedside Glucose 176 mg/dL (74-106)
--- NOTE | 2021-11-14 12:50 | OP.CCLET_ITS ---
11/14/2021 Matt Salazar [address] [place] [address] Re : Upper GI endoscopy procedure for [facility] Dear Dr. Salazar This procedure was performed on Sunday, November 14, 2021. My impressions and recommendations are as follows: Impressions : - Moderate Schatzki ring. Dilated. - Esophageal plaques were found, consistent with candidiasis. 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 Biopsied. - Hiatal hernia. - A large amount of food (residue) in the stomach. - Normal first portion of the duodenum. Biopsied. Recommendations : - Await pathology results. - Repeat upper endoscopy in 3 months for surveillance. - Use Prilosec (omeprazole) 40 mg PO BID. - Use metoclopramide 5 mg PO QID; 30 min AC and HS for 4 weeks. - Fluconazole 200mg once mone;y x 10 days - Continue present medications. My findings are described in the full procedure note, which is enclosed. If I can be of further assistance, please feel free to contact me at . Sincerely, Tom Nicholson, 11/14/2021 12:49:32 PM This report has been signed electronically.
--- NOTE | 2021-11-14 12:50 | OP.EGD_ITS ---
Patient Name: Washington Montelongo Procedure Date: 11/14/2021 12:07 PM Date of : 1960 Age: 61 Procedure: Upper GI endoscopy Indications: Dysphagia, Heartburn Providers: Tom Nicholson DO Referring MD: Matt Salazar Medicines: Monitored Anesthesia Care Patient Profile: This is a 61 year old male. Refer to note in patient chart for documentation of history and physical. Patient has symptoms of dysphagia with solids and acute heartburn. Complications: No immediate complications. Procedure: Pre-Anesthesia Assessment: - Prior to the procedure, a History and Physical was performed, and patient medications and allergies were reviewed. The patient is competent. The risks and benefits of the procedure and the sedation options and risks were discussed with the patient. All questions were answered and informed consent was obtained. Patient identification and proposed procedure were verified by the physician in the pre-procedure area. Mental Status Examination: alert and oriented. Airway Examination: normal oropharyngeal airway and neck mobility. Respiratory Examination: clear to auscultation. CV Examination: normal. Prophylactic Antibiotics: The patient does not require prophylactic antibiotics. Prior Anticoagulants: The patient has taken no previous anticoagulant or antiplatelet agents. ASA Grade Assessment: II - A patient with mild systemic disease. After reviewing the risks and benefits, the patient was deemed in satisfactory condition to undergo the procedure. The anesthesia plan was to use monitored anesthesia care (MAC). Immediately prior to administration of medications, the patient was re-assessed for adequacy to receive sedatives. The heart rate, respiratory rate, oxygen saturations, blood pressure, adequacy of pulmonary ventilation, and response to care were monitored throughout the procedure. The physical status of the patient was re-assessed after the procedure. After obtaining informed consent, the endoscope was passed under direct vision. Throughout the procedure, the patient's blood pressure, pulse, and oxygen saturations were monitored continuously. The pediatric colonoscope was introduced through the mouth, and advanced to the second part of duodenum. The upper GI endoscopy was accomplished without difficulty. The patient tolerated the procedure well. Scope In: 12:19:12 PM Scope Out: 12:22:47 PM Total Procedure Duration Time 0 hours 3 minutes 35 seconds Findings: A moderate Schatzki ring was found in the upper third of the esophagus. A guidewire was placed and the scope was withdrawn. Dilation was performed with a Savary dilator with no resistance at 42 Fr. The dilation site was examined and showed mild improvement in luminal narrowing. Estimated blood loss was minimal. Patchy, white plaques were found in the upper third of the esophagus and in the middle third of the esophagus. The esophagus and gastroesophageal junction were examined with white light and narrow band imaging (NBI). There were esophageal mucosal changes consistent with long-segment Adorno's esophagus. These changes involved the mucosa at the upper extent of the gastric folds (39 cm from the incisors) extending to the Z-line (25 cm from the incisors). Circumferential salmon-colored mucosa was present from 25 to 38 cm. The maximum longitudinal extent of these esophageal mucosal changes was 12 cm in length. Mucosa was biopsied with a cold forceps for histology in a targeted manner at intervals of 1 cm in the middle third of the esophagus and in the lower third of the esophagus and at the gastroesophageal junction. A total of 4 specimen bottles were sent to pathology. Verification of patient identification for the specimen was done. Estimated blood loss was minimal. A hiatal hernia was present. A large amount of food (residue) was found in the gastric body. The first portion of the duodenum was normal. Biopsies were taken with a cold forceps for histology. Impression: - Moderate Schatzki ring. Dilated. - Esophageal plaques were found, consistent with candidiasis. 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 Biopsied. - Hiatal hernia. - A large amount of food (residue) in the stomach. - Normal first portion of the duodenum. Biopsied. Recommendation: - Await pathology results. - Repeat upper endoscopy in 3 months for surveillance. - Use Prilosec (omeprazole) 40 mg PO BID. - Use metoclopramide 5 mg PO QID; 30 min AC and HS for 4 weeks. - Fluconazole 200mg once mone;y x 10 days - Continue present medications. Procedure Code(s): --- Professional --- 68493, Esophagogastroduodenoscopy, flexible, transoral; with insertion of guide wire followed by passage of dilator(s) through esophagus over guide wire 66102, 59,51, Esophagogastroduodenoscopy, flexible, transoral; with biopsy, single or multiple CPT copyright 2017 [employer]. All rights reserved. The codes documented in this report are preliminary and upon warp knitter helper review may be revised to meet current compliance requirements. Tom Nicholson DO 11/14/2021 12:49:32 PM This report has been signed electronically. Number of Addenda: 0 Note Initiated On: 11/14/2021 12:07 PM
--- NOTE | 2021-11-14 12:55 | OP.COLON_ITS ---
Patient Name: Washington Montelongo Procedure Date: 11/14/2021 12:22 PM Date of : 1960 Age: 61 Procedure: Colonoscopy Indications: Abdominal pain in the left lower quadrant, Clinically significant diarrhea of unexplained origin, Abnormal CT of the GI tract Providers: Tom Nicholson DO Referring MD: Matt Salazar Medicines: Monitored Anesthesia Care Patient Profile: This is a 61 year old male. Refer to note in patient chart for documentation of history and physical. Patient has symptoms of dysphagia with solids and acute heartburn. Last Colonoscopy: 5 years ago. Complications: No immediate complications. Procedure: Pre-Anesthesia Assessment: - Prior to the procedure, a History and Physical was performed, and patient medications and allergies were reviewed. The patient is competent. The risks and benefits of the procedure and the sedation options and risks were discussed with the patient. All questions were answered and informed consent was obtained. Patient identification and proposed procedure were verified by the physician in the pre-procedure area. Mental Status Examination: alert and oriented. Airway Examination: normal oropharyngeal airway and neck mobility. Respiratory Examination: clear to auscultation. CV Examination: normal. Prophylactic Antibiotics: The patient does not require prophylactic antibiotics. Prior Anticoagulants: The patient has taken no previous anticoagulant or antiplatelet agents. ASA Grade Assessment: II - A patient with mild systemic disease. After reviewing the risks and benefits, the patient was deemed in satisfactory condition to undergo the procedure. The anesthesia plan was to use monitored anesthesia care (MAC). Immediately prior to administration of medications, the patient was re-assessed for adequacy to receive sedatives. The heart rate, respiratory rate, oxygen saturations, blood pressure, adequacy of pulmonary ventilation, and response to care were monitored throughout the procedure. The physical status of the patient was re-assessed after the procedure. After I obtained informed consent, the scope was passed under direct vision. Throughout the procedure, the patient's blood pressure, pulse, and oxygen saturations were monitored continuously. The colonoscope was introduced through the anus and advanced to the terminal ileum. The colonoscopy was performed without difficulty. The patient tolerated the procedure well. The quality of the bowel preparation was poor. Scope In: 12:25:33 PM Scope Withdrawal Time 0 hours 6 minutes 32 seconds Scope Out: 12:36:34 PM Total Procedure Duration Time 0 hours 11 minutes 1 second Findings: The perianal and digital rectal examinations were normal. A large amount of stool was found in the rectum, in the recto-sigmoid colon, in the sigmoid colon, in the descending colon, at the splenic flexure, in the transverse colon, at the hepatic flexure, in the ascending colon and in the cecum. A localized area of the terminal ileum was congested. Biopsies were taken with a cold forceps for histology. Verification of patient identification for the specimen was done. Estimated blood loss was minimal. Impression: - Preparation of the colon was poor. - Stool in the rectum, in the recto-sigmoid colon, in the sigmoid colon, in the descending colon, at the splenic flexure, in the transverse colon, at the hepatic flexure, in the ascending colon and in the cecum. - Congested mucosa in the terminal ileum. Biopsied. Recommendation: - Discharge patient to home. - Resume previous diet. - Continue present medications. - Await pathology results. - Repeat colonoscopy in 6 months because the bowel preparation was poor. Procedure Code(s): --- Professional --- 29521, Colonoscopy, flexible; with biopsy, single or multiple CPT copyright 2017 [employer]. All rights reserved. The codes documented in this report are preliminary and upon director corporate sales review may be revised to meet current compliance requirements. Tom Nicholson DO 11/14/2021 12:54:56 PM This report has been signed electronically. Number of Addenda: 0 Note Initiated On: 11/14/2021 12:22 PM
--- NOTE | 2021-11-14 12:56 | OP.CCLET_ITS ---
11/14/2021 Matt Salazar [address] [place] [address] Re : Colonoscopy procedure for [facility] Dear Dr. Salazar This procedure was performed on Sunday, November 14, 2021. My impressions and recommendations are as follows: Impressions : - Preparation of the colon was poor. - Stool in the rectum, in the recto-sigmoid colon, in the sigmoid colon, in the descending colon, at the splenic flexure, in the transverse colon, at the hepatic flexure, in the ascending colon and in the cecum. - Congested mucosa in the terminal ileum. Biopsied. Recommendations : - Discharge patient to home. - Resume previous diet. - Continue present medications. - Await pathology results. - Repeat colonoscopy in 6 months because the bowel preparation was poor. My findings are described in the full procedure note, which is enclosed. If I can be of further assistance, please feel free to contact me at . Sincerely, Tom Nicholson, 11/14/2021 12:54:56 PM This report has been signed electronically.
== END 2021-11-14 14:04 | disposition home or self-care (01) ==
LOC: EN 10:39 → AC 10:41
PROVIDERS: PCP Family Medicine; Referring Provider Family Medicine; Visit Provider Internal Medicine Gastroenterology
PROC: 0DJD8ZZ Inspection of Lower Intestinal Tract, Via Natural or Artificial Opening Endoscopic (ICD-10-PCS; CPT 45378; principal; 2021-11-14 11:40)
DX: Z12.11 Encounter for screening for malignant neoplasm of colon (principal); E11.9 Type 2 diabetes mellitus without complications; K22.70 Barrett's esophagus without dysplasia; K44.9 Diaphragmatic hernia without obstruction or gangrene; R13.10 Dysphagia, unspecified; K22.2 Esophageal obstruction; K76.0 Fatty (change of) liver, not elsewhere classified; I10 Essential (primary) hypertension; K21.9 Gastro-esophageal reflux disease without esophagitis; R19.7 Diarrhea, unspecified; J30.9 Allergic rhinitis, unspecified; M10.9 Gout, unspecified; E66.9 Obesity, unspecified; F17.200 Nicotine dependence, unspecified, uncomplicated
CPT/HCPCS: 45380; 43248; 43239; 82962; 88305; 88313; 88341; 88342; J7120; J2405

== ENCOUNTER 2021-11-21 12:28 | Outpatient (CLI) | payer BC, SELFPAY ==
[2021-11-21 15:10] LABS: Absolute Lymphocyte Count 2.95 X10^3/uL (0.83-4.51); Absolute Neutrophil Count 4.7 X10^3/uL (2.0-7.7); Basophil# 0.06 X10^3/uL; Basophil% 0.7 % (0-1); Eosinophil# 0.19 X10^3/uL; Eosinophils% 2.2 % (0-5); Hematocrit 41.4 % (40-54); Hemoglobin 14.3 g/dL (13.0-16.5); Lymphocyte # 2.95 X10^3/ul (0.83-4.51); Mean Corp Hgb Conc 34.5 g/dL (32-36); Mean Corpuscular Hgb 30.1 pg (27.0-32.0); Mean Corpuscular Volume 87.2 fL (80-94); Mean Platelet Vol. 11.5 fl (6.2-12.0); Monocyte# 0.73 X10^3/uL; Monocyte% 8.4 % (0-10); NRBC Flagged by Analyzer 0 % (0-5); Neutrophil # 4.68 X10^3/uL (2.7-7.7); Platelet Count 211 K/mm3 (150-450); RBC Distribution Width CV 12.5 % (11.6-14.6); RBC Distribution Width SD 39.3 fl (35.1-43.9); Red Blood Count 4.75 M/mm3 (4.6-6.2); White Blood Count 8.7 K/mm3 (4.4-11.0)
[2021-11-21 15:18] LABS: ALB/GLOB Ratio 0.8 RATIO (0.9-2.4); AST(SGOT) 21 U/L (15-37); Alanine Aminotransfer ALT/SGPT 44 U/L (16-61); Albumin, Serum 3.4 g/dL (3.2-5.0); Alkaline Phosphatase 93 U/L (45-117); Anion Gap 11 (5-15); BUN 16 mg/dL (7-18); BUN/Creat Ratio 17.9 RATIO (10-20); Calcium,Total 9.8 mg/dL (8.5-10.1); Chloride 103 mmol/L (98-107); Creatinine, Serum 0.89 mg/dL (0.70-1.30); EST Glomerular Filtration Rate 92 mL/min (>60); Est Glom Filt Rate - Afr Amer 111 mL/min (>60); Glucose 196 mg/dL (74-106); Potassium 3.9 mmol/L (3.5-5.1); Protein, Total 7.4 g/dL (6.4-8.2); Sodium Level 141 mmol/L (136-145)
[2021-11-21 15:53] LABS: Hemoglobin A1c 7.4 % (3.8-5.6)
== END 2021-11-21 23:59 | disposition home or self-care (01) ==
LOC: MFPLAB 12:31
PROVIDERS: PCP Family Medicine; Referring Provider Family Medicine; Visit Provider Family Medicine
DX: B37.81 Candidal esophagitis (principal); E11.8 Type 2 diabetes mellitus with unspecified complications
CPT/HCPCS: 36415; 80053; 83036; 85025

== ENCOUNTER 2022-01-10 13:27 | Outpatient (RCR) | payer BC, SELFPAY | END 2022-02-04 23:59 | disposition home or self-care (01) | LOC: DC 13:27 | PROVIDERS: PCP Family Medicine; Referring Provider Family Medicine; Visit Provider Family Medicine | DX: E11.641 Type 2 diabetes mellitus with hypoglycemia with coma (principal); K76.0 Fatty (change of) liver, not elsewhere classified; R10.13 Epigastric pain | CPT/HCPCS: 97802 ==

== ENCOUNTER 2022-02-22 15:41 | Outpatient (RCR) | payer BC, SELFPAY | END 2022-03-07 23:59 | LOC: DC 15:41 | PROVIDERS: PCP Family Medicine; Referring Provider Family Medicine; Visit Provider Family Medicine | DX: E11.641 Type 2 diabetes mellitus with hypoglycemia with coma (principal); K76.0 Fatty (change of) liver, not elsewhere classified; R10.13 Epigastric pain; E66.9 Obesity, unspecified; K22.70 Barrett's esophagus without dysplasia | CPT/HCPCS: 97803 ==

== ENCOUNTER → 2022-05-23 | Outpatient (CLI) | payer BC, SELFPAY ==
[2022-05-23 10:12] LABS: Absolute Lymphocyte Count 1.71 X10^3/uL (0.83-4.51); Absolute Neutrophil Count 2.9 X10^3/uL (2.0-7.7); Basophil# 0.07 X10^3/uL; Basophil% 1.2 % (0-1); Eosinophil# 0.55 X10^3/uL; Eosinophils% 9.6 % (0-5); Hematocrit 39.5 % (40-54); Hemoglobin 13.6 g/dL (13.0-16.5); Lymphocyte # 1.71 X10^3/ul (0.83-4.51); Lymphocyte % 29.9 % (19-41); Mean Corp Hgb Conc 34.4 g/dL (32-36); Mean Corpuscular Hgb 29.4 pg (27.0-32.0); Mean Corpuscular Volume 85.5 fL (80-94); Mean Platelet Vol. 10.8 fl (6.2-12.0); Monocyte% 8.7 % (0-10); NRBC Flagged by Analyzer 0 % (0-5); Neutrophil # 2.87 X10^3/uL (2.7-7.7); Neutrophil % 50.3 % (47-70); Platelet Count 192 K/mm3 (150-450); RBC Distribution Width CV 12.6 % (11.6-14.6); RBC Distribution Width SD 38.5 fl (35.1-43.9); Red Blood Count 4.62 M/mm3 (4.6-6.2); White Blood Count 5.7 K/mm3 (4.4-11.0)
[2022-05-23 10:44] LABS: ALB/GLOB Ratio 0.9 RATIO (0.9-2.4); AST(SGOT) 23 U/L (15-37); Alanine Aminotransfer ALT/SGPT 33 U/L (16-61); Albumin, Serum 3.3 g/dL (3.2-5.0); Alkaline Phosphatase 82 U/L (45-117); Anion Gap 4 (5-15); BUN 18 mg/dL (7-18); BUN/Creat Ratio 23.5 RATIO (10-20); Calcium,Total 9.1 mg/dL (8.5-10.1); Chloride 107 mmol/L (98-107); Creatinine, Serum 0.77 mg/dL (0.70-1.30); EST Glomerular Filtration Rate 109 mL/min (>60); Est Glom Filt Rate - Afr Amer 132 mL/min (>60); Globulin 3.8 g/dL (2.2-4.2); Glucose 154 mg/dL (74-106); Potassium 3.7 mmol/L (3.5-5.1); Protein, Total 7.1 g/dL (6.4-8.2); Sodium Level 139 mmol/L (136-145)
[2022-05-23 10:53] LABS: Hemoglobin A1c 7.1 % (3.8-5.6)
== END | disposition home or self-care (01) ==
LOC: MFPLAB 09:29
PROVIDERS: PCP Family Medicine; Referring Provider Family Medicine; Visit Provider Family Medicine
DX: E11.59 Type 2 diabetes mellitus with other circulatory complications (principal)
CPT/HCPCS: 36415; 80053; 83036; 85025

== ENCOUNTER → 2022-06-07 | Outpatient (CLI) | payer BC, SELFPAY ==
[2022-06-07 18:01] LABS: Absolute Lymphocyte Count 2.16 X10^3/uL (0.83-4.51); Absolute Neutrophil Count 3.2 X10^3/uL (2.0-7.7); Basophil# 0.06 X10^3/uL; Basophil% 0.9 % (0-1); Eosinophil# 0.53 X10^3/uL; Eosinophils% 8.3 % (0-5); Hematocrit 41.9 % (40-54); Hemoglobin 14.1 g/dL (13.0-16.5); Lymphocyte # 2.16 X10^3/ul (0.83-4.51); Lymphocyte % 33.8 % (19-41); Mean Corp Hgb Conc 33.7 g/dL (32-36); Mean Corpuscular Hgb 29.3 pg (27.0-32.0); Mean Corpuscular Volume 86.9 fL (80-94); Mean Platelet Vol. 11.2 fl (6.2-12.0); Monocyte# 0.48 X10^3/uL; Monocyte% 7.5 % (0-10); NRBC Flagged by Analyzer 0 % (0-5); Neutrophil # 3.15 X10^3/uL (2.7-7.7); Neutrophil % 49.2 % (47-70); Platelet Count 214 K/mm3 (150-450); RBC Distribution Width CV 12.6 % (11.6-14.6); RBC Distribution Width SD 39.6 fl (35.1-43.9); Red Blood Count 4.82 M/mm3 (4.6-6.2); White Blood Count 6.4 K/mm3 (4.4-11.0)
[2022-06-07 18:37] LABS: Erythrocyte Sedimentation Rate 28 mm/hr (0-20)
[2022-06-07 18:44] LABS: CRP < 2.90 mg/L (0.0-3.0); Rheumatoid Factor < 10.0 IU/mL (<15); Uric Acid 7.2 mg/dL (3.5-7.2)
[2022-06-09 12:09] LABS: ANTINUCLEAR ANTIBODIES DIRECT Negative (Negative)
== END | disposition home or self-care (01) ==
LOC: MFPLAB 16:28
PROVIDERS: PCP Family Medicine; Visit Provider Orthopaedic Surgery
DX: M17.12 Unilateral primary osteoarthritis, left knee (principal)
CPT/HCPCS: 36415; 84550; 85025; 85652; 86038; 86140; 86431

== ENCOUNTER 2022-07-18 10:41 | Day surgery (SDC) | payer BC, SELFPAY ==
[2022-07-18] VITALS (8 sets, daily range): BP systolic 134–146; BP diastolic 61–93; PULSE 60–65; RESP 18; TEMP 36.6–36.7; O2SAT 95–99; BMI 32.5
[2022-07-18] MEDS: Lactated Ringers 1,000 ML 15 ML IV (10:55)
--- NOTE | 2022-07-18 11:44 | PCM.HP.BLA ---
History and Physical Date of Admission: 07/18/22 61 M who presents to the office today for f/u EGD and screening colonoscopy. EGD was indicated for GERD refractory to omeprazole 20 mg daily, he still required rolaids, maalox, sucralfate; and hx esophageal stricture and possibly Adorno's. Maybe some improvement in acid reflux w/ increase to omeprazole 40 mg daily. No dysphagia, nausea, vomiting. He does feel full quickly. No abdominal pain. No diarrhea, constipation, melena, hematochezia. EGD positive for Schatzki ring which Dr Nicholson dilated, candidiasis in esophagus treated with fluconazole, hiatal hernia, gastric bezoar; biopsies positive for Adorno's, negative for dysplasia. Treating Adorno's with increasing omeprazole 40 mg to BID dosing for 2 mos, then resume once daily dosing in the morning. Treating bezoar/gastroparesis with one month of metoclopramide 5 mg before meals. Colon prep was poor so Dr Nicholson recommends repeat colonoscopy in 6 mos. 11/14/21 EGD and Colonoscopy Impression: ? - Moderate Schatzki ring. Dilated. ? - Esophageal plaques were found, consistent ? with candidiasis. ? - Esophageal mucosal changes consistent with ? long-segment Adorno's esophagus. Biopsied. ? - Hiatal hernia. ? - A large amount of food (residue) in the ? stomach. ? - Normal first portion of the duodenum. ? Biopsied. Impression: ? - Preparation of the colon was poor; repeat in 6 mos ? - Stool in the rectum, in the recto-sigmoid ? colon, in the sigmoid colon, in the descending ? colon, at the splenic flexure, in the ? transverse colon, at the hepatic flexure, in ? the ascending colon and in the cecum. ? - Congested mucosa in the terminal ileum. ? Biopsied. MICROSCOPIC DIAGNOSIS A.? Distal esophagus, biopsy: Fragments of gastroesophageal mucosa with extensive intestinal metaplasia (goblet cell metaplasia), consistent with Adorno?s esophagus.? Acute and chronic inflammation and changes consistent with gastroesophageal reflux disease. Negative for dysplasia. See comment. B.? Terminal ileum, biopsy: ?Fragments of small intestinal mucosa, no pathologic diagnosis Exam Const General: cooperative, comfortable and no acute distress Nutritional Appearance: obese Orientation: alert, awake and oriented x3 Quality Reporting Tobacco Screening ([facility] 138) Smoking Status: Never smoker Assessment and Plan Assessment and Plan (1) GERD (gastroesophageal reflux disease): ?Status:?Acute ?Plan: We discussed results from his EGD and Colonoscopy EGD--hiatal hernia, Adorno's, Schatzki ring, gastric bezoar For Adorno's he is taking omeprazole 40 mg bid x 2 mos, then will decrease back down to QAM For bezoar, metoclopramide 5 mg QAC x one month Repeat EGD in 3 mos; if bezoar still present then may need ongoing treatment for gastroparesis; also with untreated gastroparesis it is difficult to control acid reflux. Will plan on repeating colonoscopy in approx 6 mos due to poor prep (2) Barretts esophagus: ?Status:?Acute ?Plan: as above (3) Gastric bezoar: ?Status:?Acute ?Plan: as above (4) Schatzki's ring: ?Status:?Acute ?Plan: as above ? ? ? Medications: Changed From metoclopramide HCl ?? administer 30 minutes before meals 5 mg? PO BIDWMEAL 90 tabs 0RF ? ? To metoclopramide HCl ?? administer 30 minutes before meals 5 mg? PO QAC 90 tabs 0RF ? ? Discontinued fluconazole ?? Do not take Colchicine for 10 days while this medication is being taken ?? Discontinued Reason:? Pt no longer taking 200 mg? PO DAILY 10 tabs 0RF ? ? I have examined the patient and the H&P has been reviewed. There are no clinical changes since date of exam.
[2022-07-18 11:45] LABS: Bedside Glucose 213 mg/dL (74-106)
--- NOTE | 2022-07-18 12:00 | EGD_PTH ---
PATIENT: TIA GRIFFIN LOC: [facility] U#:[id number] AGE/SX: 61/M ROOM: RE07/18/[address]: Dr. Tom Nicholson DO : 1960 BED: DIS: 07/18/2022 SPEC #: [id number] RECD: 07/18/22 14:46 STATUS: MARCI REQ #: [id number] BALJEET: 07/18/22 12:[address]: oTm Nicholson DEPT: SURGICAL PATHOLOGY RECD BY: Contreras Riggs ENTERED: 07/19/22 11:34 SP TYPE: EGD BIOPSY VICTOR MANUEL DR: Dr. Matt Salazar MD Tissues: Esophagus, NOS Procedures: Special Stain Group II Special Stain Group I Surgery Specimen Level IV GMS Stain (control) Alcian Blue/PAS (control) HEADER OPERATION: EGD ([facility]), biopsy PRE-OP DIAGNOSIS: GERD, Adorno?s esophagus, gastric bezoar, Schatzki?s ring TISSUE SUBMITTED: Distal esophagus biopsy MICROSCOPIC DIAGNOSIS Distal esophagus, biopsy: A fragment of gastric mucosa with chronic inflammation. Intestinal metaplasia (goblet cell metaplasia) not identified. See comment. TUCKER:katelyn 07/20/2022 COMMENT Alcian blue/PAS stain with matched control is used in the evaluation of the specimen. Detached desquamated squamous epithelial cells mixed with acute inflammatory cells (neutrophils) are also noted. Special stain for fungi is positive for organisms (yeast and pseudohyphae) consistent with Danuta species in the detached desquamated squamous epithelial cells; matched control is appropriate. Correlation with clinical, endoscopic findings and appropriate follow up are necessary. MICROSCOPIC DESCRIPTION Slides are reviewed. GROSS DESCRIPTION Received in fixative is one container labeled with the patient's name and designated biopsy distal esophagus. The specimen consists of one irregular fragment of light jacinto soft tissue that measures 0.3 x 0.3 x 0.1 cm. The specimen is totally submitted in one cassette. / TUCKER:katelyn 07/19/2022 TC:3 CPT: 05057, 71822, 09694
--- NOTE | 2022-07-18 13:00 | OP.EGD_ITS ---
Patient Name: Washington Montelongo Procedure Date: 07/18/2022 12:44 PM Date of : 1960 Age: 61 Procedure: Upper GI endoscopy Indications: Follow-up of Adorno's esophagus Providers: Tom Nicholson DO Referring MD: Tom Nicholson DO Medicines: Monitored Anesthesia Care Patient Profile: This is a 61 year old male. Refer to note in patient chart for documentation of history and physical. Patient has symptoms of chronic heartburn. Complications: No immediate complications. Procedure: Pre-Anesthesia Assessment: - Prior to the procedure, a History and Physical was performed, and patient medications and allergies were reviewed. The patient is competent. The risks and benefits of the procedure and the sedation options and risks were discussed with the patient. All questions were answered and informed consent was obtained. Patient identification and proposed procedure were verified by the physician in the pre-procedure area. Mental Status Examination: alert and oriented. Airway Examination: normal oropharyngeal airway and neck mobility. Respiratory Examination: clear to auscultation. CV Examination: normal. Prophylactic Antibiotics: The patient does not require prophylactic antibiotics. Prior Anticoagulants: The patient has taken no previous anticoagulant or antiplatelet agents. After reviewing the risks and benefits, the patient was deemed in satisfactory condition to undergo the procedure. The anesthesia plan was to use moderate sedation / analgesia (conscious sedation). Immediately prior to administration of medications, the patient was re-assessed for adequacy to receive sedatives. The heart rate, respiratory rate, oxygen saturations, blood pressure, adequacy of pulmonary ventilation, and response to care were monitored throughout the procedure. The physical status of the patient was re-assessed after the procedure. After obtaining informed consent, the endoscope was passed under direct vision. Throughout the procedure, the patient's blood pressure, pulse, and oxygen saturations were monitored continuously. The gastroscope was introduced through the mouth, and advanced to the second part of duodenum. The upper GI endoscopy was accomplished without difficulty. The patient tolerated the procedure well. Moderate Sedation: Moderate (conscious) sedation was personally administered by an anesthesia professional. The following parameters were monitored: oxygen saturation, heart rate, blood pressure, respiratory rate, EKG, adequacy of pulmonary ventilation, and response to care. Scope In: 12:53:39 PM Scope Out: 12:55:03 PM Total Procedure Duration Time 0 hours 1 minute 24 seconds Findings: Food was found in the middle third of the esophagus. Removal of food was accomplished. Verification of patient identification for the specimen was done. Estimated blood loss was minimal. The Z-line was irregular and was found 38 cm from the incisors. Biopsies were taken with a cold forceps for histology. Verification of patient identification for the specimen was done. Estimated blood loss was minimal. A medium-sized hiatal hernia was present. A large amount of food (residue) was found in the entire examined stomach. The duodenal bulb was normal. Impression: - Food in the middle third of the esophagus. Removal was successful. - Z-line irregular, 38 cm from the incisors. Biopsied. - Medium-sized hiatal hernia. - A large amount of food (residue) in the stomach. - Normal duodenal bulb. Recommendation: - Discharge patient to home. - Resume previous diet. - Continue present medications. - Await pathology results. - Repeat upper endoscopy in 1 year for surveillance. - Gastric emptying study to assess for gastroparesis Procedure Code(s): --- Professional --- 70919, Esophagogastroduodenoscopy, flexible, transoral; with removal of foreign body(s) 60731, Esophagogastroduodenoscopy, flexible, transoral; with biopsy, single or multiple CPT copyright 2017 [employer]. All rights reserved. The codes documented in this report are preliminary and upon regional ehs manager review may be revised to meet current compliance requirements. Tom Nicholson DO 07/18/2022 1:00:24 PM This report has been signed electronically. Number of Addenda: 0 Note Initiated On: 07/18/2022 12:44 PM
--- NOTE | 2022-07-18 13:01 | OP.CCLET_ITS ---
07/18/2022 Matt Salazar [address] [place] [address] Re : Upper GI endoscopy procedure for [facility] Dear Dr. Salazar This procedure was performed on Monday, July 18, 2022. My impressions and recommendations are as follows: Impressions : - Food in the middle third of the esophagus. Removal was successful. - Z-line irregular, 38 cm from the incisors. Biopsied. - Medium-sized hiatal hernia. - A large amount of food (residue) in the stomach. - Normal duodenal bulb. Recommendations : - Discharge patient to home. - Resume previous diet. - Continue present medications. - Await pathology results. - Repeat upper endoscopy in 1 year for surveillance. - Gastric emptying study to assess for gastroparesis My findings are described in the full procedure note, which is enclosed. If I can be of further assistance, please feel free to contact me at . Sincerely, Tom Nicholson, 07/18/2022 1:00:24 PM This report has been signed electronically.
== END 2022-07-18 14:06 | disposition home or self-care (01) ==
LOC: EN 10:42 → AC 10:43
PROVIDERS: PCP Family Medicine; Referring Provider Family Medicine; Visit Provider Internal Medicine Gastroenterology
PROC: 0DJ08ZZ Inspection of Upper Intestinal Tract, Via Natural or Artificial Opening Endoscopic (ICD-10-PCS; CPT 43235; principal; 2022-07-18 11:55)
DX: K44.9 Diaphragmatic hernia without obstruction or gangrene (principal); E11.9 Type 2 diabetes mellitus without complications; T18.128A Food in esophagus causing other injury, initial encounter; K22.70 Barrett's esophagus without dysplasia; K21.00 Gastro-esophageal reflux disease with esophagitis, without bleeding; X58.XXXA Exposure to other specified factors, initial encounter; Z87.19 Personal history of other diseases of the digestive system; Z79.84 Long term (current) use of oral hypoglycemic drugs; T18.2XXA Foreign body in stomach, initial encounter; K76.0 Fatty (change of) liver, not elsewhere classified; K22.2 Esophageal obstruction
CPT/HCPCS: 43239; 43247; 82962; 88305; 88312; 88313; J7120; J2405

== ENCOUNTER → 2022-10-02 | Outpatient (CLI) | payer BC, SELFPAY ==
--- NOTE | 2022-10-02 11:45 | RAD_ITS ---
INDICATION: pain EXAMINATION/TECHNIQUE: X-RAY - LEFT XR Knee Complete 4 Views or More 4 VIEWS COMPARISON: No relevant prior comparison study available FINDINGS: SOFT TISSUES: No soft tissue swelling or gas. No radiopaque foreign body. BONES/JOINTS: No acute fracture or subluxation.. Normal alignment. There are tricompartmental degenerative changes, most pronounced within the medial compartment. No sclerotic or destructive changes observed. There are faint calcific densities projecting over the lateral compartment. RAD/Knee 4 or More Views IMPRESSION: Degenerative changes. Chondrocalcinosis. Electronically Signed: Carmen Burgos MD at 12:03 EDT ,
== END | disposition home or self-care (01) ==
PROVIDERS: PCP Family Medicine; Referring Provider Family Medicine; Visit Provider Family Medicine
DX: M25.562 Pain in left knee (principal)
CPT/HCPCS: 73564

== ENCOUNTER → 2022-12-26 | Outpatient (CLI) | payer BC, SELFPAY ==
[2022-12-26 18:16] LABS: ALB/GLOB Ratio 0.8 RATIO (0.9-2.4); AST(SGOT) 22 U/L (15-37); Alanine Aminotransfer ALT/SGPT 43 U/L (16-61); Albumin, Serum 3.4 g/dL (3.2-5.0); Alkaline Phosphatase 88 U/L (45-117); Anion Gap 7 (5-15); BUN 15 mg/dL (7-18); BUN/Creat Ratio 19.9 RATIO (10-20); Calcium,Total 8.9 mg/dL (8.5-10.1); Chloride 106 mmol/L (98-107); Creatinine, Serum 0.76 mg/dL (0.70-1.30); EST Glomerular Filtration Rate 111 mL/min (>60); Est Glom Filt Rate - Afr Amer 134 mL/min (>60); Glucose 137 mg/dL (74-106); Potassium 3.9 mmol/L (3.5-5.1); Protein, Total 7.4 g/dL (6.4-8.2); Sodium Level 140 mmol/L (136-145)
== END | disposition home or self-care (01) ==
LOC: MFPLAB 16:05
PROVIDERS: Family Medicine; PCP Family Medicine; Visit Provider Family Medicine
DX: L29.9 Pruritus, unspecified (principal)
CPT/HCPCS: 36415; 80053

== ENCOUNTER → 2023-03-09 | Outpatient (CLI) | payer BC, SELFPAY ==
[2023-03-09 18:01] LABS: Absolute Lymphocyte Count 2.32 X10^3/uL (0.83-4.51); Absolute Neutrophil Count 4.3 X10^3/uL (2.0-7.7); Basophil# 0.05 X10^3/uL; Basophil% 0.6 % (0-1); Eosinophil# 0.45 X10^3/uL; Eosinophils% 5.8 % (0-5); Hematocrit 38.9 % (40-54); Hemoglobin 12.9 g/dL (13.0-16.5); Lymphocyte # 2.32 X10^3/ul (0.83-4.51); Mean Corp Hgb Conc 33.2 g/dL (32-36); Mean Corpuscular Hgb 29.2 pg (27.0-32.0); Mean Platelet Vol. 11.1 fl (6.2-12.0); Monocyte# 0.56 X10^3/uL; Monocyte% 7.2 % (0-10); NRBC Flagged by Analyzer 0 % (0-5); Neutrophil # 4.32 X10^3/uL (2.7-7.7); Platelet Count 219 K/mm3 (150-450); RBC Distribution Width CV 12.8 % (11.6-14.6); RBC Distribution Width SD 41.1 fl (35.1-43.9); Red Blood Count 4.42 M/mm3 (4.6-6.2); White Blood Count 7.7 K/mm3 (4.4-11.0)
[2023-03-09 18:38] LABS: ALB/GLOB Ratio 0.9 RATIO (0.9-2.4); AST(SGOT) 28 U/L (15-37); Alanine Aminotransfer ALT/SGPT 55 U/L (16-61); Albumin, Serum 3.5 g/dL (3.2-5.0); Alkaline Phosphatase 75 U/L (45-117); Anion Gap 3 (5-15); BUN 13 mg/dL (7-18); BUN/Creat Ratio 11.5 RATIO (10-20); Calcium,Total 8.9 mg/dL (8.5-10.1); Chloride 106 mmol/L (98-107); Creatinine, Serum 1.13 mg/dL (0.70-1.30); EST Glomerular Filtration Rate 70 mL/min (>60); Est Glom Filt Rate - Afr Amer 84 mL/min (>60); Globulin 3.8 g/dL (2.2-4.2); Glucose 119 mg/dL (74-106); Potassium 4.1 mmol/L (3.5-5.1); Protein, Total 7.3 g/dL (6.4-8.2); Sodium Level 136 mmol/L (136-145); Uric Acid 9.6 mg/dL (3.5-7.2)
== END | disposition home or self-care (01) ==
LOC: MFPLAB 15:28
PROVIDERS: PCP Family Medicine; Visit Provider Family Medicine
DX: E11.8 Type 2 diabetes mellitus with unspecified complications (principal); M10.9 Gout, unspecified
CPT/HCPCS: 36415; 80053; 84550; 85025

== ENCOUNTER → 2023-05-18 | Outpatient (CLI) | payer BC, SELFPAY ==
[2023-05-18 18:11] LABS: Hemoglobin A1c 6.6 % (3.8-5.6)
[2023-05-18 18:12] LABS: AST(SGOT) 15 U/L (15-37); Alanine Aminotransfer ALT/SGPT 33 U/L (16-61); Albumin, Serum 3.5 g/dL (3.2-5.0); Alkaline Phosphatase 79 U/L (45-117); Anion Gap 3 (5-15); BUN 14 mg/dL (7-18); BUN/Creat Ratio 15.5 RATIO (10-20); Calcium,Total 9.4 mg/dL (8.5-10.1); Chloride 107 mmol/L (98-107); EST Glomerular Filtration Rate 90 mL/min (>60); Est Glom Filt Rate - Afr Amer 109 mL/min (>60); Globulin 3.6 g/dL (2.2-4.2); Glucose 200 mg/dL (74-106); Potassium 3.8 mmol/L (3.5-5.1); Protein, Total 7.1 g/dL (6.4-8.2); Sodium Level 138 mmol/L (136-145); Uric Acid 6.4 mg/dL (3.5-7.2)
== END | disposition home or self-care (01) ==
PROVIDERS: PCP Family Medicine; Referring Provider Family Medicine; Visit Provider Family Medicine
DX: E11.65 Type 2 diabetes mellitus with hyperglycemia (principal); M10.9 Gout, unspecified
CPT/HCPCS: 36415; 80053; 83036; 84550

== ENCOUNTER 2023-05-25 15:52 | Emergency (ER) | payer BC, SELFPAY ==
[2023-05-25 15:54] VITALS: BP 161/76; PULSE 65; RESP 18; TEMP 36.2; O2SAT 97; BMI 32.4
--- NOTE | 2023-05-25 15:59 | EKG12_ITS ---
Test Reason : Blood Pressure : / mmHG Vent. Rate : 064 BPM Atrial Rate : 064 BPM P-R Int : 134 ms QRS Dur : 076 ms QT Int : 430 ms P-R-T Axes : 034 025 068 degrees QTc Int : 443 ms Normal sinus rhythm Normal ECG Confirmed by Inder Brar ([id number]), script editor KESHA LAWSON ([id number]) on 05/28/2023 2:18:52 PM Referred By: Confirmed By:Inder Brar
--- NOTE | 2023-05-25 16:25 | RAD_ITS ---
INDICATION: chest pain EXAMINATION/TECHNIQUE: X-RAY - XR Chest 1 View COMPARISON: None. FINDINGS: Chronic lung changes. No definite acute lung findings. Tortuous and calcified thoracic aorta. The heart is borderline enlarged. No pleural effusion or pneumothorax. Degenerative changes of the thoracic spine. RAD/Chest 1 View (Portable) IMPRESSION: No acute radiographic abnormalities. Electronically Signed: Javan Feliciano MD at 16:49 EDT ,
[2023-05-25 17:53] VITALS: BP 173/84; PULSE 64; RESP 18; O2SAT 96
[2023-05-25 18:04] LABS: Absolute Lymphocyte Count 1.89 X10^3/uL (0.83-4.51); Absolute Neutrophil Count 7.1 X10^3/uL (2.0-7.7); Basophil# 0.06 X10^3/uL; Basophil% 0.6 % (0-1); Hemoglobin 14.5 g/dL (13.0-16.5); Lymphocyte # 1.89 X10^3/ul (0.83-4.51); Lymphocyte % 18.7 % (19-41); Mean Corp Hgb Conc 34.5 g/dL (32-36); Mean Corpuscular Hgb 29.8 pg (27.0-32.0); Mean Corpuscular Volume 86.2 fL (80-94); Monocyte# 0.79 X10^3/uL; Monocyte% 7.8 % (0-10); NRBC Flagged by Analyzer 0 % (0-5); Neutrophil # 7.12 X10^3/uL (2.7-7.7); Neutrophil % 70.5 % (47-70); Platelet Count 200 K/mm3 (150-450); RBC Distribution Width CV 12.9 % (11.6-14.6); RBC Distribution Width SD 39.5 fl (35.1-43.9); Red Blood Count 4.87 M/mm3 (4.6-6.2); White Blood Count 10.1 K/mm3 (4.4-11.0)
[2023-05-25 18:25] LABS: Anion Gap 7 (5-15); BUN 20 mg/dL (7-18); BUN/Creat Ratio 19.6 RATIO (10-20); Calcium,Total 9.2 mg/dL (8.5-10.1); Chloride 104 mmol/L (98-107); Creatinine, Serum 1.02 mg/dL (0.70-1.30); EST Glomerular Filtration Rate 78 mL/min (>60); Est Glom Filt Rate - Afr Amer 95 mL/min (>60); Glucose 134 mg/dL (74-106); Potassium 4.7 mmol/L (3.5-5.1); Sodium Level 139 mmol/L (136-145); Troponin-I HS (w/2H Reflex) 8 pg/mL (3.0-78.0)
--- NOTE | 2023-05-25 19:00 | EDS_ITS ---
HPI History of Present Illness Chief Complaint: General Illness Narrative Narrative: 62-year-old male past medical history of diabetes, GERD, presents from urgent care with concern for cardiac etiology of his heartburn. He states he awoke at 2:00 in the morning with heartburn. He took his medication, but it did not go away. He denies any nausea or vomiting, no fevers or chills. He has an occasional cough, watery eyes, and runny nose from allergies for which she takes Flonase. There was concern that he had cardiac problems because he complains of midsternal chest burning, mainly when he coughs. No leg swelling, no other symptoms. PFSH PFSH Medical History Curvature of spine Diabetes Difficulty swallowing GERD (gastroesophageal reflux disease) Gout Hemorrhoid History of throat cancer Imbalance Inguinal hernia Low-level of literacy Non-smoker Home Medications atorvastatin 20 mg tablet 20 mg PO QHS 03/07/21 [History Last Taken Unknown] metformin 500 mg tablet 500 mg PO BID 03/07/21 [History Last Taken Unknown] famotidine 20 mg tablet 20 mg PO QHS 09/09/21 [History Last Taken Unknown] multivitamin 1 tab PO DAILY 09/09/21 [History Last Taken Unknown] vit C 250 mg-vit E 90 mg-zinc 40 mg-copper 1 [id number] capsule (PreserVision AREDS-2) 1 tab PO BID 09/09/21 [History Last Taken Unknown] metoclopramide HCl 5 mg tablet 5 mg PO QAC #90 tabs 11/30/21 [Rx Last Taken Unknown] omeprazole 40 mg capsule,delayed release 40 mg PO QAM #90 caps 08/22/22 [Rx Last Taken Unknown] Allergy/AdvReac Type Severity Reaction Status Date / Time doxycycline AdvReac Nausea Verified 05/25/23 15:54 Surgical History History of esophagogastroduodenoscopy (EGD) History of hernia surgery History of nasal surgery Social History Smoking Status: Never smoker ROS ROS ED ROS Narrative Constitutional: No fever, no chills. HEENT: No sore throat. No neck pain. No loss of vision. Positive rhinorrhea, positive watery eyes. Cardiovascular: Positive midsternal chest burning/chest pain. No palpitations. No pedal edema. Respiratory: Occasional nonproductive cough, no shortness of breath. Abdominal: No abdominal pain. No nausea. No vomiting. Genitourinary: No dysuria. No hematuria. Musculoskeletal: No myalgias. No arthralgias. Neurologic: No headaches. No dizziness. No lightheadedness. Skin: No rash. No change in color. Psychiatric: No depression. No anxiety. EXAM Physical Exam Narrative Exam Narrative: Afebrile. Vital signs noted. HEENT: Normocephalic. Atraumatic. PERRL, EOMI. Neck soft and supple. No point tenderness or step off. Cardiovascular: Regular rate and rhythm. No murmurs, rubs, or gallops appreciated. Respiratory: No tachypnea. Lungs clear to auscultation bilaterally. Gastrointestinal: Abdomen soft, nontender, with normoactive bowel sounds. No rebound or guarding. Neurological: Awake. Alert. Nonfocal, nonlateralizing. Skin: No rash. Normal color. No pallor. Musculoskeletal: No pedal edema. Full range of motion extremities. Const Vital Signs: 05/25/23 15:54 05/25/23 17:53 05/25/23 19:31 Temperature 97.2 F L Temperature Source Temporal Pulse Rate 65 64 Respiratory Rate 18 18 Respiratory Effort Respiratory Pattern Blood Pressure 161/76 H 173/84 H Blood Pressure Mean 104 113 Pulse Ox 97 96 Oxygen Delivery Method Room Air Room Air Room Air 05/25/23 19:38 05/25/23 19:38 05/25/23 21:00 Temperature Temperature Source Pulse Rate 69 74 Respiratory Rate 16 18 Respiratory Effort Normal Non-Labored Respiratory Pattern Normal Blood Pressure 147/68 H 164/71 H Blood Pressure Mean 94 102 Pulse Ox 95 92 Oxygen Delivery Method Room Air Room Air MDM MDM MDM Narrative Medical decision making narrative: In the differential diagnosis is ACS versus GERD versus allergy symptoms. For his cough, in the differential would be pneumonia. I have low suspicion for pulmonary embolism as he is not tachycardic and is not hypoxic. He is resting comfortably laying flat on the cot. Will be given a GI cocktail. His initial workup was started in triage per RN protocol. I reviewed his laboratory work and he has normal white count of 10.1, hemoglobin normal at 14.5, hematocrit 42.0, platelet count normal at 200. Review of his electrolyte panel shows a BUN of 20 with creatinine normal at 1.02. Glucose is elevated at 134 with a normal anion gap of 7. Initial high-sensitivity troponin is 8. Chest x-ray in 1 view interpreted by myself independently shows no evidence of pneumothorax or pneumonia. I reviewed the radiology report which confirms my independent interpretation. After GI cocktail, he states he feels moderately improved. In review of the tr iage note, I discussed with him not eating spicy foods, and not eating foods that would exacerbate his GERD. He was told that he should sit up after eating as well. In review of his second troponin, it is also 8 for a negative delta troponin. At this point in time, I feel he can be discharged to follow-up with his primary care provider. He will continue his previous medications. Return instructions were reviewed. Disposition is discharged home in stable condition. History & Record Review Discussion w/independent historian: Patient Additional record(s) reviewed:: Prior labs Lab Data Attestation: I reviewed the patient's lab results. Labs: Laboratory Results - last 24 hr 05/25/23 05/25/23 17:55 20:08 WBC 10.1 RBC 4.87 Hgb 14.5 Hct 42.0 MCV 86.2 MCH 29.8 MCHC 34.5 RDW Std Deviation 39.5 RDW Coeff of Damian 12.9 Plt Count 200 MPV 11.0 Immature Gran % (Auto) 0.400 Neut % (Auto) 70.5 H Lymph % (Auto) 18.7 L [place] % (Auto) 7.8 Eos % (Auto) 2.0 Baso % (Auto) 0.6 Absolute Neuts (auto) 7.1 Absolute Lymphs (auto) 1.89 Nucleated RBC % 0 Sodium 139 Potassium 4.7 Chloride 104 Carbon Dioxide 28.0 Anion Gap 7 BUN 20 H Creatinine 1.02 Estim Creat Clear Calc 68.10 Est GFR (MDRD) Af Amer 95 Est GFR (MDRD) Non-Af 78 BUN/Creatinine Ratio 19.6 Glucose 134 H Calcium 9.2 Troponin I High Sens 8 8 Radiography Diagnostic Testing: Clinical Impression(s) from Imaging Studies Chest X-Ray 05/25/23 16:25 IMPRESSION: No acute radiographic abnormalities. Electronically Signed: Javan Feliciano MD at 16:49 EDT , Discharge Plan Triage Chief Complaint: General Illness ED Provider: Srinivas Ferrera Dx/Rx/DC Orders Clinical Impression: GERD (gastroesophageal reflux disease), Chest pain Instructions: ED Chest Pain, Noncardiac, ED GERD (Adult) Prescriptions: No Action metoclopramide HCl 5 mg tablet 5 mg PO QAC Qty: 90 0RF Rx Instructions: administer 30 minutes before meals omeprazole 40 mg capsule,delayed release(DR/EC) 40 mg PO QAM Qty: 90 3RF metformin 500 mg tablet 500 mg PO BID atorvastatin 20 mg tablet 20 mg PO QHS multivitamin Tablet 1 tab PO DAILY PreserVision AREDS-2 250-90-40-1 mg Capsule 1 tab PO BID famotidine 20 mg tablet 20 mg PO QHS Patient Comments: TAKE 1 TABLET BY MOUTH 30 MINUTES BEFORE DINNER Primary Care Provider: Matt Salazar Referrals: Matt Salazar MD [Primary Care Provider] - 3-5 Days if not improving Disposition Disposition: Home, Self Care
[2023-05-25 19:38] VITALS: BP 147/68; PULSE 69; RESP 16; O2SAT 95
[2023-05-25] MEDS: Mag Hydrox/Al Hydrox/Simeth 30 ML UDC PO (19:40)
[2023-05-25 19:59] LABS: Reflex Troponin-HS? (from REC) Y
[2023-05-25 20:39] LABS: Troponin-I HS 8 pg/mL (3.0-78.0)
[2023-05-25 21:00] VITALS: BP 164/71; PULSE 74; RESP 18; O2SAT 92
[2023-05-25 21:30] VITALS: BP 164/71; PULSE 74; RESP 18; TEMP 36.6; O2SAT 99
== END 2023-05-25 21:31 | disposition home or self-care (01) ==
PROVIDERS: Emergency Provider Emergency Medicine; PCP Family Medicine; Visit Provider Emergency Medicine
DX: K21.9 Gastro-esophageal reflux disease without esophagitis (principal); E11.65 Type 2 diabetes mellitus with hyperglycemia; Z79.84 Long term (current) use of oral hypoglycemic drugs; Z79.899 Other long term (current) drug therapy
CPT/HCPCS: 71045; 80048; 84484; 85025; 93005; 99283

== ENCOUNTER 2023-10-01 18:41 | Emergency (ER) | payer BC, SELFPAY ==
[2023-10-01 18:43] VITALS: BP 125/68; PULSE 78; RESP 18; TEMP 36.6; O2SAT 95; BMI 32.6
[2023-10-01 20:42] VITALS: BP 160/78; PULSE 66; O2SAT 98
--- NOTE | 2023-10-01 21:35 | EX.ED.DYSGE1 ---
HPI History of Present Illness Chief Complaint: Chest Other Informant: patient Onset/Context/Timing Onset: Today Context: Gradual Onset Timing: Continuous Quality: Burning Location: Epigastric area Worsened by: Nothing Relieved by: Nothing Narrative Narrative: Patient presents with heartburn and cough that began this morning. Patient states it is gradually gotten worse throughout the day. Patient states he has a history of GERD but normally states he gets better throughout the day. Patient describes the pain as burning. Patient states it is over the epigastric area. Patient states nothing makes it better and nothing makes it worse. Patient was seen here for this in the past and was given a prescription for omeprazole. Patient states he has been taking this with no improvement. Patient admits to some nausea but denies any vomiting. Patient admits to a cough but denies any shortness of breath. Patient also admits to some rhinorrhea. PFSH PFS Medical History Difficulty swallowing Non-smoker Low-level of literacy Imbalance Curvature of spine Hemorrhoid History of throat cancer Inguinal hernia Gout Diabetes GERD (gastroesophageal reflux disease) Home Medications ?Medication ?Instructions ?Recorded ?Last Taken ?Type atorvastatin 20 mg tablet 20 mg PO QHS 03/07/21 Unknown History metformin 500 mg tablet 500 mg PO BID 03/07/21 Unknown History famotidine 20 mg tablet 20 mg PO QHS 09/09/21 Unknown History multivitamin 1 tab PO DAILY 09/09/21 Unknown History vit C 250 mg-vit E 90 mg-zinc 40 1 tab PO BID 09/09/21 Unknown History mg-copper 1 [id number] capsule (PreserVision AREDS-2) metoclopramide HCl 5 mg tablet 5 mg PO QAC #90 tabs 11/30/21 Unknown Rx omeprazole 40 mg capsule,delayed 40 mg PO QAM #30 caps 09/28/23 Unknown Rx release Allergy/AdvReac Type Severity Reaction Status Date / Time doxycycline AdvReac Nausea Verified 10/01/23 18:43 Surgical History History of esophagogastroduodenoscopy (EGD) History of nasal surgery History of hernia surgery Social History Smoking Status: Never smoker ROS ROS ED Constitutional Constitutional ED: Denies chills or fever(s) Eyes Eyes: Denies blurry vision or change in vision ENT ENT ED: Reports rhinorrhea; Denies sore throat Cardiovascular Cardiovascular: Reports chest pain; Denies palpitations Respiratory/Chest Respiratory/Chest: Reports cough; Denies dyspnea Gastrointestinal Gastrointestinal: Reports nausea; Denies vomiting Genitourinary Genitourinary ED: Denies dysuria or hematuria Musculoskeletal Musculoskeletal: Denies back pain or neck pain Integumentary Denies abscess or rash Neurologic Neurologic: Denies headache(s) or weakness Allergic/Immunologic Allergic/Immunologic ED: Denies mouth swelling or urticaria EXAM Physical Exam Const Vital Signs: 10/01/23 18:43 10/01/23 20:42 10/01/23 22:00 Temperature 97.8 F Temperature Source Temporal Pulse Rate 78 66 66 Respiratory Rate 18 Blood Pressure 125/68 H 160/78 H 167/81 H Blood Pressure Mean 87 105 109 Pulse Ox 95 98 98 Oxygen Delivery Method Room Air Room Air Room Air Positive well nourished and well developed General Appearance ED: well developed and NAD HEENT Reports moist mucous membranes Neck supple and no JVD Resp normal respiratory effort and clear to auscultation bilaterally Cardio regular rate and regular rhythm GI non-distended Palpation: soft and tender epigastric; Negative for guarding or rebound tenderness present Neuro oriented x3, CN's II-XII intact bilaterally and no sensory deficits noted Sensorium / Orientation: alert Motor Exam: strength 5/5 throughout Psych mental status grossly normal MDM MDM MDM Narrative Medical decision making narrative: Differential diagnosis includes gastroesophageal reflux disease, gastritis, viral illness, pancreatitis, cholecystitis, and cholelithiasis. CBC will be obtained to assess for leukocytosis and anemia. Comprehensive metabolic profile will be obtained to assess for hepatic function, renal function, and electrolyte abnormality. Lipase will be obtained to assess for pancreatitis. Lab Data Attestation: I reviewed the patient's lab results. Lab results narrative: CBC was reviewed and was within normal limits. Comprehensive metabolic profile was reviewed and was essentially within normal limits. Lipase was reviewed and was normal. Labs: Laboratory Results - last 24 hr 10/01/23 21:56 WBC 7.3 RBC 4.61 Hgb 13.6 Hct 39.4 L MCV 85.5 MCH 29.5 MCHC 34.5 RDW Std Deviation 38.9 RDW Coeff of Damian 12.8 Plt Count 202 MPV 10.6 Immature Gran % (Auto) 0.400 Neut % (Auto) 55.0 Lymph % (Auto) 29.1 [place] % (Auto) 9.4 Eos % (Auto) 5.1 H Baso % (Auto) 1.0 Absolute Neuts (auto) 4.0 Absolute Lymphs (auto) 2.13 Nucleated RBC % 0 Sodium 140 Potassium 4.0 Chloride 109 H Carbon Dioxide 26.0 Anion Gap 5 BUN 20 H Creatinine 0.90 Estim Creat Clear Calc 74.52 Est GFR (MDRD) Af Amer 110 Est GFR (MDRD) Non-Af 91 BUN/Creatinine Ratio 22.3 H Glucose 133 H Calcium 9.4 Total Bilirubin 0.40 AST 17 ALT 31 Alkaline Phosphatase 98 Total Protein 7.5 Albumin 3.4 Globulin 4.1 Albumin/Globulin Ratio 0.8 L Lipase 59 Treatment and Re-Evaluation :: Patient was given Zofran and a GI cocktail. Patient is feeling better after this. Patient was advised of his findings. Patient was instructed to continue his omeprazole as prescribed. Patient was instructed to take Tums as needed for further heartburn. Patient was instructed to follow-up with his primary care physician in 5 to 7 days. Patient was instructed return if worse in any way. Patient understood and was agreeable with plan. All questions were answered. Discharge Plan Triage Chief Complaint: Chest Other ED Provider: Matt Dc Dx/Rx/DC Orders Clinical Impression: GERD (gastroesophageal reflux disease), Elevated blood pressure reading Instructions: ED GERD (Adult) Prescriptions: No Action metoclopramide HCl 5 mg tablet 5 mg PO QAC Qty: 90 0RF Rx Instructions: administer 30 minutes before meals metformin 500 mg tablet 500 mg PO BID atorvastatin 20 mg tablet 20 mg PO QHS multivitamin Tablet 1 tab PO DAILY PreserVision AREDS-2 250-90-40-1 mg Capsule 1 tab PO BID famotidine 20 mg tablet 20 mg PO QHS Patient Comments: TAKE 1 TABLET BY MOUTH 30 MINUTES BEFORE DINNER omeprazole 40 mg capsule,delayed release(DR/EC) 40 mg PO QAM Qty: 30 1RF Primary Care Provider: Matt Salazar Referrals: Matt Salazar MD [Primary Care Provider] - 5-7 Days Print Language: Sudanese Disposition Disposition: Home, Self Care
[2023-10-01] MEDS: Lidocaine 2% Viscous15 ML UDC 15 ML PO (21:47)
[2023-10-01] MEDS: Ondansetron 4 MG/2 ML Vial IV (21:47)
[2023-10-01] MEDS: Mag /Aluminum/Simeth WCH UDC 30 ML ORAL.SUSP PO (21:47)
[2023-10-01 22:00] VITALS: BP 167/81; PULSE 66; O2SAT 98
[2023-10-01 22:18] LABS: Absolute Lymphocyte Count 2.13 X10^3/uL (0.83-4.51); Basophil# 0.07 X10^3/uL; Eosinophil# 0.37 X10^3/uL; Eosinophils% 5.1 % (0-5); Hematocrit 39.4 % (40-54); Hemoglobin 13.6 g/dL (13.0-16.5); Lymphocyte # 2.13 X10^3/ul (0.83-4.51); Lymphocyte % 29.1 % (19-41); Mean Corp Hgb Conc 34.5 g/dL (32-36); Mean Corpuscular Hgb 29.5 pg (27.0-32.0); Mean Corpuscular Volume 85.5 fL (80-94); Mean Platelet Vol. 10.6 fl (6.2-12.0); Monocyte# 0.69 X10^3/uL; Monocyte% 9.4 % (0-10); NRBC Flagged by Analyzer 0 % (0-5); Neutrophil # 4.02 X10^3/uL (2.7-7.7); Platelet Count 202 K/mm3 (150-450); RBC Distribution Width CV 12.8 % (11.6-14.6); RBC Distribution Width SD 38.9 fl (35.1-43.9); Red Blood Count 4.61 M/mm3 (4.6-6.2); White Blood Count 7.3 K/mm3 (4.4-11.0)
[2023-10-01 22:31] LABS: ALB/GLOB Ratio 0.8 RATIO (0.9-2.4); AST(SGOT) 17 U/L (15-37); Alanine Aminotransfer ALT/SGPT 31 U/L (16-61); Albumin, Serum 3.4 g/dL (3.2-5.0); Alkaline Phosphatase 98 U/L (45-117); Anion Gap 5 (5-15); BUN 20 mg/dL (7-18); BUN/Creat Ratio 22.3 RATIO (10-20); Calcium,Total 9.4 mg/dL (8.5-10.1); Chloride 109 mmol/L (98-107); EST Glomerular Filtration Rate 91 mL/min (>60); Est Glom Filt Rate - Afr Amer 110 mL/min (>60); Estimated Creatinine Clearance 74.52 ml/min; Globulin 4.1 g/dL (2.2-4.2); Glucose 133 mg/dL (74-106); Lipase 59 U/L (13-75); Protein, Total 7.5 g/dL (6.4-8.2); Sodium Level 140 mmol/L (136-145)
[2023-10-01 23:21] VITALS: BP 111/89; PULSE 68; RESP 15; TEMP 36.6; O2SAT 98
== END 2023-10-01 23:37 | disposition home or self-care (01) ==
PROVIDERS: Emergency Provider Emergency Medicine; PCP Family Medicine; Visit Provider Emergency Medicine
DX: K21.9 Gastro-esophageal reflux disease without esophagitis (principal); E11.9 Type 2 diabetes mellitus without complications; R03.0 Elevated blood-pressure reading, without diagnosis of hypertension; R05.9 Cough, unspecified; Z79.84 Long term (current) use of oral hypoglycemic drugs; Z79.899 Other long term (current) drug therapy
CPT/HCPCS: 80053; 83690; 85025; 96374; 99283; A4216; J2405

== ENCOUNTER → 2023-11-20 | Outpatient (CLI) | payer BC, SELFPAY ==
[2023-11-20 17:43] LABS: Absolute Lymphocyte Count 1.56 X10^3/uL (0.83-4.51); Absolute Neutrophil Count 3.7 X10^3/uL (2.0-7.7); Basophil# 0.06 X10^3/uL; Eosinophil# 0.34 X10^3/uL; Eosinophils% 5.4 % (0-5); Hematocrit 38.4 % (40-54); Lymphocyte # 1.56 X10^3/ul (0.83-4.51); Lymphocyte % 24.9 % (19-41); Mean Corp Hgb Conc 33.9 g/dL (32-36); Mean Corpuscular Hgb 29.8 pg (27.0-32.0); Mean Corpuscular Volume 88.1 fL (80-94); Mean Platelet Vol. 11.1 fl (6.2-12.0); Monocyte# 0.54 X10^3/uL; Monocyte% 8.6 % (0-10); NRBC Flagged by Analyzer 0 % (0-5); Neutrophil # 3.73 X10^3/uL (2.7-7.7); Neutrophil % 59.6 % (47-70); Platelet Count 217 K/mm3 (150-450); RBC Distribution Width CV 13.1 % (11.6-14.6); RBC Distribution Width SD 41.9 fl (35.1-43.9); Red Blood Count 4.36 M/mm3 (4.6-6.2); White Blood Count 6.3 K/mm3 (4.4-11.0)
[2023-11-20 18:09] LABS: ALB/GLOB Ratio 0.9 RATIO (0.9-2.4); AST(SGOT) 16 U/L (15-37); Alanine Aminotransfer ALT/SGPT 32 U/L (16-61); Albumin, Serum 3.4 g/dL (3.2-5.0); Alkaline Phosphatase 111 U/L (45-117); Anion Gap 7 (5-15); BUN 22 mg/dL (7-18); BUN/Creat Ratio 19.3 RATIO (10-20); Calcium,Total 8.7 mg/dL (8.5-10.1); Chloride 110 mmol/L (98-107); Creatinine, Serum 1.14 mg/dL (0.70-1.30); EST Glomerular Filtration Rate 69 mL/min (>60); Est Glom Filt Rate - Afr Amer 83 mL/min (>60); Globulin 3.9 g/dL (2.2-4.2); Glucose 189 mg/dL (74-106); Protein, Total 7.3 g/dL (6.4-8.2); Sodium Level 140 mmol/L (136-145)
== END | disposition home or self-care (01) ==
LOC: MFPLAB 15:48
PROVIDERS: PCP Family Medicine; Visit Provider Family Medicine
DX: R42 Dizziness and giddiness (principal)
CPT/HCPCS: 36415; 80053; 84443; 85025; 86780

== ENCOUNTER → 2024-02-01 | Outpatient (CLI) | payer BC, SELFPAY ==
[2024-02-01 12:15] LABS: Absolute Neutrophil Count 3.5 X10^3/uL (2.0-7.7); Basophil# 0.08 X10^3/uL; Basophil% 1.2 % (0-1); Eosinophil# 0.35 X10^3/uL; Eosinophils% 5.2 % (0-5); Hematocrit 39.5 % (40-54); Hemoglobin 13.5 g/dL (13.0-16.5); Lymphocyte % 29.9 % (19-41); Mean Corp Hgb Conc 34.2 g/dL (32-36); Mean Corpuscular Hgb 30.3 pg (27.0-32.0); Mean Corpuscular Volume 88.8 fL (80-94); Mean Platelet Vol. 11.8 fl (6.2-12.0); Monocyte# 0.69 X10^3/uL; Monocyte% 10.3 % (0-10); NRBC Flagged by Analyzer 0 % (0-5); Neutrophil # 3.54 X10^3/uL (2.7-7.7); Platelet Count 196 K/mm3 (150-450); RBC Distribution Width CV 12.9 % (11.6-14.6); RBC Distribution Width SD 41.6 fl (35.1-43.9); Red Blood Count 4.45 M/mm3 (4.6-6.2); White Blood Count 6.7 K/mm3 (4.4-11.0)
[2024-02-03 23:06] LABS: Immunoglobulin E 33 IU/mL (6-495)
[2024-02-04 13:06] LABS: ANTINUCLEAR ANTIBODIES DIRECT Negative (Negative)
== END | disposition home or self-care (01) ==
LOC: MFPLAB 10:46
PROVIDERS: PCP Family Medicine; Referring Provider Family Medicine; Visit Provider Family Medicine
DX: I73.00 Raynaud's syndrome without gangrene (principal); L98.9 Disorder of the skin and subcutaneous tissue, unspecified
CPT/HCPCS: 36415; 82785; 85025; 86038

== ENCOUNTER → 2024-05-26 | Outpatient (CLI) | payer BC, SELFPAY ==
[2024-05-26 15:27] LABS: Absolute Lymphocyte Count 1.89 X10^3/uL (0.83-4.51); Absolute Neutrophil Count 3.2 X10^3/uL (2.0-7.7); Basophil# 0.05 X10^3/uL; Basophil% 0.8 % (0-1); Eosinophil# 0.34 X10^3/uL; Eosinophils% 5.7 % (0-5); Hematocrit 40.1 % (40-54); Hemoglobin 14.4 g/dL (13.0-16.5); Lymphocyte # 1.89 X10^3/ul (0.83-4.51); Lymphocyte % 31.6 % (19-41); Mean Corp Hgb Conc 35.9 g/dL (32-36); Mean Corpuscular Hgb 31.5 pg (27.0-32.0); Mean Corpuscular Volume 87.7 fL (80-94); Mean Platelet Vol. 12.1 fl (6.2-12.0); Monocyte# 0.51 X10^3/uL; Monocyte% 8.5 % (0-10); NRBC Flagged by Analyzer 0 % (0-5); Neutrophil # 3.17 X10^3/uL (2.7-7.7); Neutrophil % 52.9 % (47-70); POSITIVE COUNT YES; Platelet Count 170 K/mm3 (150-450); RBC Distribution Width CV 13.3 % (11.6-14.6); RBC Distribution Width SD 41.1 fl (35.1-43.9); Red Blood Count 4.57 M/mm3 (4.6-6.2)
[2024-05-26 16:21] LABS: ALB/GLOB Ratio 1.3 RATIO (0.9-2.4); AST(SGOT) 19 U/L (<=37); Alanine Aminotransfer ALT/SGPT 17 U/L (<=46); Albumin, Serum 4.1 g/dL (3.4-4.8); Alkaline Phosphatase 102 U/L (40-129); Anion Gap 14 (5-15); BUN 20 mg/dL (4-19); BUN/Creat Ratio 21.9 RATIO (10-20); Calcium,Total 9.3 mg/dL (7.6-11.0); Carbon Dioxide 20.8 mmol/L (21.0-32.0); Chloride 106 mmol/L (98-108); Creatinine, Serum 0.89 mg/dL (0.70-1.20); EST Glomerular Filtration Rate 96 (>60); Glucose 160 mg/dL (70-99); Potassium 4.1 mmol/L (3.3-5.1); Protein, Total 7.1 g/dL (5.9-8.4); Sodium Level 140 mmol/L (133-145); Total Bilirubin 0.39 mg/dL (0.00-1.30); Vitamin B12 444 pg/mL (180-914)
[2024-05-26 19:33] LABS: Platelet Estimate ADEQUATE (ADEQ)
== END | disposition home or self-care (01) ==
LOC: MFPLAB 11:32
PROVIDERS: PCP Family Medicine; Referring Provider Family Medicine; Visit Provider Family Medicine
DX: R20.2 Paresthesia of skin (principal)
CPT/HCPCS: 80053; 82607; 82746; 84443; 85025

== ENCOUNTER → 2024-09-09 | Outpatient (CLI) | payer BC, SELFPAY ==
[2024-09-09 18:26] LABS: Hematocrit 39.4 % (40-54); Hemoglobin 13.6 g/dL (13.0-16.5); Immature Granulocytes Count 0.030 X10^3/uL (0.0-0.0); Mean Corp Hgb Conc 34.5 g/dL (32-36); Mean Corpuscular Volume 87.0 fL (80-94); Mean Platelet Vol. 11.1 fl (6.2-12.0); NRBC Flagged by Analyzer 0 % (0-5); Platelet Count 234 K/mm3 (150-450); RBC Distribution Width CV 13.2 % (11.6-14.6); RBC Distribution Width SD 40.5 fl (35.1-43.9); Red Blood Count 4.53 M/mm3 (4.6-6.2); White Blood Count 6.4 K/mm3 (4.4-11.0)
[2024-09-09 18:56] LABS: AST(SGOT) 17 U/L (<=37); Alanine Aminotransfer ALT/SGPT 17 U/L (<=46); Albumin, Serum 4.0 g/dL (3.4-4.8); Alkaline Phosphatase 97 U/L (40-129); Anion Gap 13 (5-15); BUN 27 mg/dL (4-19); BUN/Creat Ratio 27.1 RATIO (10-20); Calcium,Total 9.3 mg/dL (7.6-11.0); Carbon Dioxide 21.1 mmol/L (21.0-32.0); Chloride 103 mmol/L (98-108); Globulin 3.1 g/dL (2.2-4.2); Glucose 136 mg/dL (70-99); Potassium 4.4 mmol/L (3.3-5.1)
== END | disposition home or self-care (01) ==
LOC: MFPLAB 15:20
PROVIDERS: PCP Family Medicine; Referring Provider Family Medicine; Visit Provider Family Medicine
DX: R55 Syncope and collapse (principal); R29.898 Other symptoms and signs involving the musculoskeletal system
CPT/HCPCS: 36415; 80053; 83036; 84443; 85025

== ENCOUNTER 2024-09-26 10:53 | Emergency (ER) | payer BC, SELFPAY ==
[2024-09-26 10:54] VITALS: BP 130/66; PULSE 80; RESP 18; TEMP 36.3; O2SAT 98; BMI 30.6
--- NOTE | 2024-09-26 12:06 | EKG12_ITS ---
Test Reason : Blood Pressure : */* mmHG Vent. Rate : 57 BPM Atrial Rate : 57 BPM P-R Int : 140 ms QRS Dur : 76 ms QT Int : 432 ms P-R-T Axes : 28 18 58 degrees QTcB Int : 420 ms Sinus bradycardia Otherwise normal ECG Confirmed by MARIA DOLORES JENKINS, MALKA ([id number]), editor sound TARI OROZCO ([id number]) on 09/29/2024 7:32:29 AM Referred By: Confirmed By: MALKA WHITTEN MD
--- NOTE | 2024-09-26 12:06 | CT_ITS ---
PROCEDURE: BRAIN/HEAD WITHOUT CONTRAST 09/26/2024 REASON FOR EXAM: WEAKNESS Recent falls. TECHNIQUE: BRAIN/HEAD WITHOUT CONTRAST Coronal and Sagittal reconstruction series were provided. One or more dose reduction techniques were used (e.g., Automated exposure control, adjustment of the mA and/or kV according to patient size, use of iterative reconstruction technique. RADIATION DOSE SUMMARY: CTDlvol: 44.99 mGy DLP: 866.41 mGycm COMPARISON: None FINDINGS: Brain: Low density in the periventricular white matter suggests mild chronic small vessel ischemic changes. CSF Spaces: Mild generalized cerebral atrophy Sinuses/Mastoids: Minimal mucosal thickening at the bases of the maxillary sinuses. Bones: No fracture. CT/Brain/Head without Contrast IMPRESSION: CHRONIC CHANGES. NO ACUTE FINDINGS. Reading Location: [id number]
--- NOTE | 2024-09-26 12:08 | EDS_ITS ---
HPI HPI - Fall History of Present Illness Chief Complaint: Fall Informant: patient Occured/Mechanism Occurred: Today Mechanism/Context: Yes same level fall Pain/Injury Pain Location: upper extremity (Left upper arm) and lower extremity (Left knee) Quality of Pain: Aching Worsened by: Nothing Relieved by: Nothing Associated Symptoms Associated Symptoms: Negative for Parasthesias, Weakness, Loss of function, Inability to ambulate, Loss of consciousness or Amnesia Narrative Narrative: Patient presents after a fall that occurred today. Patient fell while he was at [facility] today. Patient states he has been falling frequently. Patient states his legs give out from time to time. Patient denies any head injury or loss of consciousness. Patient denies any paresthesias or weakness. Patient states he fell onto his left side. Patient admits to some pain over his left upper arm. Patient admits to a recent cough. Patient denies any chest pain or shortness of breath. Patient denies any nausea or vomiting. PFSH [facility] Medical History Difficulty swallowing Non-smoker Low-level of literacy Imbalance Curvature of spine Hemorrhoid History of throat cancer Inguinal hernia Gout Diabetes GERD (gastroesophageal reflux disease) Home Medications ?Medication ?Instructions ?Recorded ?Last Taken ?Type atorvastatin 20 mg tablet 20 mg PO QHS 03/07/21 Unknow n History metformin 500 mg tablet 500 mg PO BID 03/07/21 Unkno wn History famotidine 20 mg tablet 20 mg PO QHS 09/09/21 Unknow n History multivitamin 1 tab PO DAILY 09/09/21 Unkn own History vit C 250 mg-vit E 90 mg-zinc 40 1 tab PO BID 09/09/21 Unknown History mg-copper 1 he-dpuzcy-ehwmka capsule (PreserVision AREDS-2) metoclopramide HCl 5 mg tablet 5 mg PO QAC #90 tabs Unknown Rx omeprazole 40 mg capsule,delayed 40 mg PO QAM #30 caps 12/24/23 Unknown Rx release Allergy/AdvReac Type Severity Reaction Status Date / Time doxycycline AdvReac Nausea Verified 09/26/24 10:57 Surgical History History of esophagogastroduodenoscopy (EGD) History of nasal surgery History of hernia surgery Social History housing: house Smoking Status: Never smoker ROS ROS ED Constitutional Constitutional ED: Denies chills or fever(s) Eyes Eyes: Denies blurry vision or change in vision ENT ENT ED: Denies rhinorrhea or sore throat Cardiovascular Cardiovascular: Denies chest pain or palpitations Respiratory/Chest Respiratory/Chest: Reports cough; Denies dyspnea Gastrointestinal Gastrointestinal: Denies nausea or vomiting Genitourinary Genitourinary ED: Denies dysuria or hematuria Musculoskeletal Musculoskeletal: Reports neck pain; Denies back pain Integumentary Denies abscess or rash Neurologic Neurologic: Denies headache(s) or weakness Allergic/Immunologic Allergic/Immunologic ED: Denies mouth swelling or urticaria EXAM Physical Exam Const Vital Signs: 09/26/24 10:54 09/26/24 11:05 Temperature 97.3 F L Temperature Source Oral Pulse Rate 80 Respiratory Rate 18 Respiratory Effort Normal Non-Labored Respiratory Depth Normal Respiratory Pattern Normal Blood Pressure 130/66 H Blood Pressure Mean 87 Pulse Ox 98 Oxygen Delivery Method Room Air Room Air Positive well nourished and well developed General Appearance ED: well developed and NAD HEENT Reports normocephalic Neck full ROM and supple Resp normal respiratory effort and clear to auscultation bilaterally Cardio regular rate and regular rhythm GI non-tender and non-distended Palpation: soft Extremity Extremity Narrative: There is mild tenderness over the left upper arm. There is no edema or ecchymosis. There is no deformity noted. Range of motion was slightly limited in the left shoulder and left elbow secondary to pain. Radial pulses are equal bilaterally. Strength is 5/5 bilateral in the upper extremities. There are no sensory deficits noted. Neuro oriented x3, CN's II-XII intact bilaterally, moves all extremities, no focal motor deficits and no sensory deficits noted Frankie Coma Scale: document GCS findings Spontaneous Obeys Commands Oriented 15 Sensorium / Orientation: alert Motor Exam: strength 5/5 throughout Psych mental status grossly normal and thought process normal MDM MDM MDM Narrative Medical decision making narrative: Differential diagnosis includes upper arm fracture, viral illness, cardiac dysrhythmia, cardiac ischemia, electrolyte abnormality, and intracranial bleeding. EKG will be obtained to assess for cardiac dysrhythmia and cardiac ischemia. CT scan of the brain will be obtained to assess for intracranial bleeding. X-rays of the left humerus will be obtained to assess for humerus fracture. CBC will be obtained to assess for leukocytosis and anemia. Comprehensive metabolic profile will be obtained to assess for hepatic function, renal function, and electrolyte abnormality. Urinalysis will be obtained to assess for urinary tract infection. COVID-19, influenza, and RSV PCR will be obtained to assess for viral illness. Lab Data Lab results narrative: CBC was reviewed and was essentially within normal limits. Comprehensive metabolic profile was reviewed. Potassium was elevated at 5.8, however, the specimen was hemolyzed. BUN was minimally elevated at 21. Glucose was slightly elevated at 124. The remainder is within normal limits. COVID-19 PCR was reviewed and was positive. Influenza PCR was reviewed and was negative for influenza A and influenza B. RSV PCR was reviewed and was negative. Patient refused to provide urine specimen. EKG Initial EKG: Attestation: I personally reviewed and interpreted this EKG as follows: Interpretation: No Acute Injury Pattern and Sinus Bradycardia (57) Comments: EKG was obtained. On my independent interpretation, it showed a sinus bradycardia with a rate of 57. AL interval, QRS interval, and QTc intervals were all normal. [place] was normal. There are no acute ST or T wave changes. Prior EKG tracings: available for review Prior: Unchanged (05/25/2023) Treatment and Re-Evaluation Narrative: Patient was given IV fluids. Patient refused to provide urine specimen. Patient was advised of his findings. Patient was instructed to drink plenty of fluids at home. Patient was instructed to follow-up with his primary care physician in 5 to 7 days. Patient understood and was agreeable with the plan. All questions were answered. Discharge Plan Triage Chief Complaint: Fall ED Provider: Matt Dc Dx/Rx/DC Orders Clinical Impression: COVID-19, Fall Instructions: Coronavirus Disease 2019 (COVID-19): Overview Prescriptions: No Action metoclopramide HCl 5 mg tablet 5 mg PO QAC Qty: 90 0RF Rx Instructions: administer 30 minutes before meals metformin 500 mg tablet 500 mg PO BID atorvastatin 20 mg tablet 20 mg PO QHS multivitamin Tablet 1 tab PO DAILY PreserVision AREDS-2 250-90-40-1 mg Capsule 1 tab PO BID famotidine 20 mg tablet 20 mg PO QHS Patient Comments: TAKE 1 TABLET BY MOUTH 30 MINUTES BEFORE DINNER omeprazole 40 mg capsule,delayed release(DR/EC) 40 mg PO QAM Qty: 30 1RF Primary Care Provider: Matt Salazar Referrals: Matt Salazar MD [Primary Care Provider] - 5-7 Days Print Language: Norwegian Disposition Disposition: Home, Self Care
[2024-09-26 12:27] LABS: Hematocrit 38.2 % (40-54); Hemoglobin 13.4 g/dL (13.0-16.5); Immature Granulocytes Count 0.020 X10^3/uL (0.0-0.0); Mean Corp Hgb Conc 35.1 g/dL (32-36); Mean Corpuscular Volume 87.8 fL (80-94); Mean Platelet Vol. 10.9 fl (6.2-12.0); NRBC Flagged by Analyzer 0 % (0-5); Platelet Count 191 K/mm3 (150-450); RBC Distribution Width CV 13.2 % (11.6-14.6); RBC Distribution Width SD 40.9 fl (35.1-43.9); Red Blood Count 4.35 M/mm3 (4.6-6.2); White Blood Count 4.9 K/mm3 (4.4-11.0)
[2024-09-26] MEDS: 0.9% Normal Saline (1000mL) 1,000 ML 1000 ML IV (12:27)
--- NOTE | 2024-09-26 12:35 | RAD_ITS ---
PROCEDURE: HUMERUS MIN 2 VIEWS 09/26/2024 REASON FOR EXAM: INJURY/PAIN TECHNIQUE: HUMERUS MIN 2 VIEWS Laterality: Left humerus. COMPARISON: None FINDINGS: Bones: No fracture is seen. Joints: Normal alignment at the shoulder and elbow. Soft tissues: Mild soft tissue swelling. Other: RAD/Humerus min 2 Views IMPRESSION: No fracture or dislocation is seen. Reading Location: [facility]
[2024-09-26 12:53] VITALS: BP 120/78; BP 128/96; BP 136/78; BP 136/89; PULSE 70; PULSE 80
[2024-09-26 13:00] LABS: AST(SGOT) 30 U/L (<=37); Alanine Aminotransfer ALT/SGPT 21 U/L (<=46); Albumin, Serum 4.0 g/dL (3.4-4.8); Alkaline Phosphatase 89 U/L (40-129); Anion Gap 13 (5-15); BUN 21 mg/dL (4-19); BUN/Creat Ratio 19.5 RATIO (10-20); Calcium,Total 9.1 mg/dL (7.6-11.0); Carbon Dioxide 22.8 mmol/L (21.0-32.0); Chloride 104 mmol/L (98-108); Estimated Creatinine Clearance 60.53 ml/min (50-250); Globulin 3.5 g/dL (2.2-4.2); Glucose 124 mg/dL (70-99); Potassium 5.8 mmol/L (3.3-5.1)
--- NOTE | 2024-09-26 13:48 | ED.RN ---
pt asked to urinate mulitple times. after 1000ml fluid bolus pt is still unable to urinate. pt refused sc. pt requests to proceed with out urine test
[2024-09-26 14:00] VITALS: BP 128/70; PULSE 80; O2SAT 100
[2024-09-26 15:12] VITALS: BP 128/70; PULSE 80; RESP 16; TEMP 37; O2SAT 100
== END 2024-09-26 15:18 | disposition home or self-care (01) ==
PROVIDERS: Emergency Provider Emergency Medicine; PCP Family Medicine; Visit Provider Emergency Medicine
DX: U07.1 COVID-19 (principal); E11.65 Type 2 diabetes mellitus with hyperglycemia; M79.622 Pain in left upper arm; W18.30XA Fall on same level, unspecified, initial encounter; K21.9 Gastro-esophageal reflux disease without esophagitis; M10.9 Gout, unspecified; Z79.84 Long term (current) use of oral hypoglycemic drugs; Z79.899 Other long term (current) drug therapy
CPT/HCPCS: 70450; 73060; 80053; 85025; 87631; 93005; 96360; 99285; A4216

== ENCOUNTER → 2024-12-04 | Outpatient (CLI) | payer BC, SELFPAY ==
[2024-12-04 18:44] LABS: Uric Acid 7.9 mg/dL (3.5-7.2)
== END | disposition home or self-care (01) ==
LOC: MFPLAB 14:41
PROVIDERS: PCP Family Medicine
DX: M10.9 Gout, unspecified (principal); M79.675 Pain in left toe(s)
CPT/HCPCS: 36415; 84550